=== PATIENT | female | born 1980 | race Caucasian/White ===

== ENCOUNTER → 2017-05-18 | Outpatient (CLI) | payer OTHER ==
[~2017-05-18] MED LIST: BUPRTAB51 PO; CIPR-255 PO; KETO10TA PO; NALT50TA5 PO; TAMS0.4C38 PO
[2017-05-22 09:25] LABS: CHLAMYDIA TRACH RNA*** NOT DETECTED (NOT DETECTED); GC (NEIS GONORRHOEAE)RNA** NOT DETECTED (NOT DETECTED)
== END | disposition home or self-care (01) ==
LOC: C.LABSPEC 15:21
PROVIDERS: ATTEND Obstetrics & Gynecology
DX: Z20.2 Contact with and (suspected) exposure to infections with a predominantly sexual mode of transmission (principal)

== ENCOUNTER → 2017-05-18 | Outpatient (CLI) | payer OTHER | END | disposition home or self-care (01) | LOC: C.LABSPEC 09:29 | PROVIDERS: ATTEND Obstetrics & Gynecology | DX: Z20.2 Contact with and (suspected) exposure to infections with a predominantly sexual mode of transmission (principal) ==

== ENCOUNTER 2019-06-15 13:59 | Inpatient (IN) ==
--- OUTSIDE RECORDS SUMMARY | 2019-06-15 14:03 | External Medical Summary | Continuity of Care Document ---
:1980 Author Name [employer] M.D. Address Unavailable Unavailable , Care Team Providers Name Role Phone Unavailable Unavailable Unavailable Woytowich, A Unavailable Unavailable Unavailable Unavailable Unavailable Problems Recurrent UTI (599.0) (N39.0) Nephrolithiasis (592.0) (N20.0) Allergies and Adverse Reactions Allergy history not documented Medications ALPRAZolam 1 MG Oral Tablet , M.D. Refills: 0 Clindagel 1 % External Gel , M.D. Refills: 0 Valtrex 1 GM Oral Tablet , M.D. Refills: 0 SUMAtriptan Succinate 100 MG Oral Tablet , M.D. Refills: 0 Strattera CAPS , M.D. Refills: 0 buPROPion HCl TABS , M.D. Refills: 0 Naltrexone HCl - 50 MG Oral Tablet , M.D. Refills: 0 Ondansetron 4 MG Oral Tablet Disintegrating , M.D. Refills: 0 Propranolol HCl - 20 MG/5ML Oral Solution , M.D. Refills: 0 valACYclovir HCl - 500 MG Oral Tablet , M.D. Refills: 0 Multivitamins TABS , M.D. Refills: 0 Procedures Procedures not documented Immunizations Immunizations not documented Family History Mother Family history of thyroid disease (V18.19) (Z83.49) Status: Active Family history of hypertension (V17.49) (Z82.49) Status: Act phyllis Father Family history of malignant neoplasm of brain (V16.8) (Z80.8 ) Status: Active Plan of Treatment Planned Observations Planned Goals not documented Results No Known Results Results not documented Encounters Appointment; Brian Pillai II, DO 13-Feb-2018 10:40 Encounter Diagnosis: Problem not documented
--- NOTE | 2019-06-15 15:54 | Ultrasound Report ---
US venous doppler LE RT HISTORY: 38 years-old Female calf swelling/firmness r/o DVT acute right calf firmness COMPARISON: None available TECHNIQUE: Multiple real time sonographic images of the right lower extremity deep venous structures were obtained assessing grayscale appearance, color and spectral flow FINDINGS: Normal flow, compressibility, phasicity and augmentation of the right lower extremity deep venous str uctures. IMPRESSION: No sonographic evidence of deep venous thrombosis. The above report was generated using voice recognition software. It may contain grammatical, syntax o r spelling errors. Electronically signed by: Adrian Concecpion M.D. 06/15/2019 3:52 PM
[2019-06-15 16:44] LABS: Basophils # (auto) 0.12 K/uL (0-0.2); Eosinophils # (auto) 0.07 K/uL (0-0.5); Eosinophils % (auto) 1.2 %; Hematocrit (blood only) 37.7 % (37-47); Hemoglobin 12.6 g/dL (12.0-16.0); Immature Granulocytes # (auto) 0.01 K/uL (0.00-0.02); Immature Granulocytes % (auto) 0.2 %; Lymphocytes # (auto) 0.93 K/uL (1.2-3.4); Lymphocytes % (auto) 15.7 %; Mean Corpuscular Hgb Conc 33.4 g/dL (32-36); Mean Corpuscular Volume 98.7 fL (80-100); Mean Platelet Volume 8.9 fL (7.4-10.4); Monocytes # (auto) 0.82 K/uL (0.11-0.59); Monocytes % (auto) 13.9 %; Neutrophils # (auto) 3.97 K/uL (1.4-6.5); Platelet Count 104 K/uL (130-400); RDW Coefficient of Variation 15.2 % (11.5-14.5); RDW Standard Deviation 54.8 fL (36.4-46.3); Red Blood Count 3.82 M/uL (4.2-5.4); White Blood Count 5.92 K/uL (4.8-10.8)
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
[2019-06-15 16:52] LABS: Prothrombin Time 9.8 Seconds (9.0-12.0)
[2019-06-15 16:59] LABS: Albumin Level 3.9 gm/dl (3.4-5.0); BUN Creatinine Ratio 13.7 (10-20); Bilirubin Direct 0.2 mg/dl (0-0.2); Calcium 9.2 mg/dl (8.5-10.1); Creatinine Clr Calc Pharmacy 86.2 ml/min; Est GFR (African American) 94.1; Est GFR (Non-African American) 81.2; Potassium 3.7 mmol/L (3.5-5.1)
[2019-06-15 17:02] LABS: Albumin Globulin Ratio 1.1 (0.9-2); Bilirubin,Total 0.5 mg/dl (0.2-1); Globulin 3.6 gm/dl (2.5-4.0); Total Protein 7.5 gm/dl (6.4-8.2)
--- NOTE | 2019-06-15 18:27 | Emergency Department Note ---
ED Visit Note Patient was seen by our PA/FOREST AND CONSERVATION WORKER. I was involved in the patient's care and did evaluate the patient myself. I was involved in the care throughout the ER stay. The patient on work-up was found to be quite intoxicated. She is apparently drinking hand cleaner signs composed primarily of ethyl alcohol. Alcohol level here was over 500. The patient was agreeable to hospitalization for alcohol detox and psychiatric evaluation. The patient was ordered for IV saline with multivitamins, thiamine and folate. The hospitalist on-call was consulted. Psychiatric case management has been involved. .
[2019-06-15] MEDS ORDERED: MULTI-VITAMIN INFUSION 10 ML, THIAMINE HCL 100 MG, FOLIC ACID 1 MG in SODIUM CHLORIDE 0... IV SCH ×2 (18:30→20:30)
[2019-06-15 18:36] LABS: Acetaminophen < 2 ug/ml (10-30)
[2019-06-15 18:37] LABS: Salicylate < 1.7 mg/dl (2.8-20)
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
[2019-06-15] MEDS ORDERED: GABAPENTIN 1200MG ALCOHOL WITHDRAWAL LOAD PO STA (19:24)
[2019-06-15] MEDS ORDERED: ONDANSETRON INJ 2 MG/ML 2 ML VIAL IV PRN (19:24)
[2019-06-15] MEDS ORDERED: LORazepam 1 MG/2 ML VIAL IV PRN ×2 (19:24→23:56)
[2019-06-15] MEDS ORDERED: GABAPENTIN 600 MG TAB PO ONE (19:30)
[2019-06-15] MEDS ORDERED: THIAMINE HCL 100 MG in SYRINGE 9 ML IV SCH (20:00)
[2019-06-15] MEDS: FAMOTIDINE 20 MG in SYRINGE 3 ML IV SCH (20:08)
[2019-06-15 20:35] LABS: Folate (Folic Acid) 6.76 ng/ml (>5.38)
[2019-06-15] MEDS: chlordiazePOXIDE HCl 25 MG CAP PO SCH (23:01)
[2019-06-15] MEDS: LACTATED RINGER'S 1,000 ML IV SCH (23:01)
[2019-06-15] MEDS: GABAPENTIN 600 MG TAB PO SCH (23:01)
[2019-06-15 23:48] LABS: Pregnancy Test, Urine Negative (Negative)
[2019-06-15 23:58] LABS: Appearance Urine Cloudy (Clear); Bacteria Urine Automated 2+ (Negative); Bilirubin Urine Negative (Negative); Blood Urine 2+ (Negative); Color Urine Yellow; Epithelial Cell Urine Auto >30 /lpf (0-5); Glucose Urine UA Negative (Negative); Ketones Urine Negative (Negative); Leukocyte Esterase Urine 2+ (Negative); Nitrite Urine Negative (Negative); Protein Urine 1+ (Negative); Specific Gravity Urine 1.019 (1.000-1.030); Urobilinogen Urine Negative (Negative); WBC Urine Automated >30 /hpf (0-5); pH Urine 5.5 (4.5-7.5)
[2019-06-16] MEDS: LORazepam 1 MG/2 ML VIAL IV PRN ×5 (00:06→10:26)
[2019-06-16 00:15] LABS: Amphetamines+Metham, Urine Neg (Neg); Barbiturates, Urine Neg (Neg); Benzodiazepine, Urine Neg (Neg); Cocaine, Urine Neg (Neg); MDMA (Ecstacy), Urine Neg (Neg); Methadone, Urine Neg (Neg); Opiate, Urine Neg (Neg); Phencyclidine, Urine Neg (Neg)
[2019-06-16] MEDS: GABAPENTIN 600 MG TAB PO SCH (06:36)
[2019-06-16] MEDS: chlordiazePOXIDE HCl 25 MG CAP PO SCH (06:36)
[2019-06-16 07:15] LABS: Albumin Level 3.1 gm/dl (3.4-5.0); BUN Creatinine Ratio 12.9 (10-20); Calcium 7.9 mg/dl (8.5-10.1); Creatinine Clr Calc Pharmacy 107.5 ml/min; Est GFR (African American) 122.8; Potassium 3.7 mmol/L (3.5-5.1)
[2019-06-16 07:16] LABS: Albumin Globulin Ratio 1.1 (0.9-2); Bilirubin,Total 0.8 mg/dl (0.2-1); Globulin 2.8 gm/dl (2.5-4.0); Total Protein 5.9 gm/dl (6.4-8.2)
[2019-06-16] MEDS: LACTATED RINGER'S 1,000 ML IV SCH ×2 (07:17→17:21)
[2019-06-16] MEDS: FAMOTIDINE 20 MG in SYRINGE 3 ML IV SCH (07:44)
[2019-06-16] MEDS: NITROFURANTOIN MONOHYDRATE 100 MG CAP PO SCH ×2 (07:44→20:45)
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
[2019-06-16] MEDS: LORazepam 2 MG/4 ML VIAL IV PRN ×5 (11:21→22:32)
[2019-06-16] MEDS ORDERED: ACETAMINOPHEN 325 MG TAB ONE (13:54)
[2019-06-16] MEDS ORDERED: GABAPENTIN 600 MG TAB PO SCH (14:10)
[2019-06-16] MEDS ORDERED: PHENOBARBITAL SODIUM IV PRN (15:10)
[2019-06-16] MEDS ORDERED: PHENobarbital sodium 130 MG/ML VIAL IM SCH ×2 (15:30→18:30)
[2019-06-16] MEDS ORDERED: ICU PROTOCOL FOR HYPERGLYCEMIA PRN (16:19)
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
[2019-06-16] MEDS ORDERED: PHENobarbital sodium 130 MG/ML VIAL IM ONE (16:55)
[2019-06-16 18:04] LABS: BUN Creatinine Ratio 9.6 (10-20); Calcium 8.4 mg/dl (8.5-10.1); Creatinine Clr Calc Pharmacy 86.2 ml/min; Est GFR (African American) 94.1; Est GFR (Non-African American) 81.2; Potassium 3.8 mmol/L (3.5-5.1)
[2019-06-16 18:30] LABS: Base Excess VBG 5.5 mEq/L; Oxygen Saturation VBG 80.9 %; pH VBG 7.48 (7.36-7.41)
[2019-06-16] MEDS: NORMOSOL-R 1,000 ML IV SCH (19:03)
[2019-06-16] MEDS: THIAMINE HCL 500 MG in SODIUM CHLORIDE 0.9% 50 ML IV SCH (20:43)
[2019-06-16] MEDS: PHENobarbital sodium 130 MG/ML VIAL IM SCH (20:44)
[2019-06-17] MEDS: PHENobarbital sodium 130 MG/ML VIAL IM SCH (00:07)
[2019-06-17 04:11] LABS: Hematocrit (blood only) 31.1 % (37-47); Hemoglobin 10.4 g/dL (12.0-16.0); Mean Corpuscular Hgb Conc 33.4 g/dL (32-36); Mean Corpuscular Volume 100.3 fL (80-100); RDW Coefficient of Variation 14.1 % (11.5-14.5); RDW Standard Deviation 51.8 fL (36.4-46.3); White Blood Count 8.06 K/uL (4.8-10.8)
[2019-06-17 04:37] LABS: Albumin Level 2.9 gm/dl (3.4-5.0); BUN Creatinine Ratio 12.2 (10-20); Bilirubin Direct 0.3 mg/dl (0-0.2); Calcium 8.3 mg/dl (8.5-10.1); Creatinine Clr Calc Pharmacy 126.5 ml/min; Est GFR (African American) 134.5; Potassium 3.3 mmol/L (3.5-5.1)
[2019-06-17 04:40] LABS: Albumin Globulin Ratio 0.9 (0.9-2); Bilirubin,Total 0.8 mg/dl (0.2-1); Globulin 3.2 gm/dl (2.5-4.0); Total Protein 6.1 gm/dl (6.4-8.2)
[2019-06-17 04:43] LABS: Basophils # (auto) 0.06 K/uL (0-0.2); Basophils % (auto) 0.7 %; Eosinophils # (auto) 0.11 K/uL (0-0.5); Eosinophils % (auto) 1.4 %; Immature Granulocytes # (auto) 0.02 K/uL (0.00-0.02); Immature Granulocytes % (auto) 0.2 %; Lymphocytes # (auto) 1.02 K/uL (1.2-3.4); Lymphocytes % (auto) 12.7 %; Mean Platelet Volume 10.1 fL (7.4-10.4); Monocytes # (auto) 0.81 K/uL (0.11-0.59); Neutrophils # (auto) 6.04 K/uL (1.4-6.5); Platelet Count 89 K/uL (130-400); Platelet Estimate Decreased (Normal); RBC Morphology Unremarkable
[2019-06-17] MEDS: THIAMINE HCL 500 MG in SODIUM CHLORIDE 0.9% 50 ML IV SCH ×3 (05:07→21:29)
[2019-06-17] MEDS ORDERED: POTASSIUM CHLORIDE 20 MEQ TABCR PO STA (06:56)
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
[2019-06-17] MEDS: PANTOprazole 40 MG TAB PO SCH (07:41)
[2019-06-17] MEDS: ENOXAPARIN INJ 40 MG/0.4 ML SYR SQ SCH (07:41)
[2019-06-17] MEDS: NITROFURANTOIN MONOHYDRATE 100 MG CAP PO SCH ×2 (07:41→22:41)
[2019-06-17] MEDS: NORMOSOL-R 1,000 ML IV SCH (07:42)
--- NOTE | 2019-06-17 08:46 | XRay Report ---
XR tibia fibula RT 2V CLINICAL HISTORY: 38 years-old Female presenting with left leg pain and bruising. TECHNIQUE: Frontal and lateral views of the right lower leg were obtained. COMPARISON: None. FINDINGS: Knee joint and ankle mortise congruent. No acute fracture or malalignment. No advanced degenerative c hange. Subcutaneous edema noted throughout the lower leg. IMPRESSION: 1. No acute osseous injury. 2. Nonspecific lower leg edema. Electronically signed by: Russ Moya M.D. 06/17/2019 8:45 AM
[2019-06-17 09:08] LABS: Reticulocyte % 1.6 % (0.5-2.0); Reticulocytes # 0.05 10^6/uL (0.02-0.10)
[2019-06-17 09:11] LABS: Ferritin 155.2 ng/ml (8-388)
[2019-06-17] MEDS ORDERED: PHENobarbital 32.4 MG TAB PO PRN (09:18)
[2019-06-17] MEDS: PHENobarbital 32.4 MG TAB PO SCH ×2 (09:28→21:30)
[2019-06-17 09:41] LABS: Hepatitis B Surface Antigen Neg (Neg)
[2019-06-17 10:09] LABS: Hepatitis C IgG 13Yrs+Old_Rflx Neg (Neg)
[2019-06-17] MEDS ORDERED: GABAPENTIN 600 MG TAB PO SCH (18:10)
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
[2019-06-17] MEDS ORDERED: LORazepam 0.5 MG/1 ML VIAL IV ONE (21:00)
[2019-06-18] MEDS: THIAMINE HCL 300 MG in SODIUM CHLORIDE 0.9% 50 ML IV SCH ×3 (03:33→21:07)
[2019-06-18 07:12] LABS: BUN Creatinine Ratio 8.7 (10-20); Creatinine Clr Calc Pharmacy 130.8 ml/min; Est GFR (African American) 135.9; Est GFR (Non-African American) 117.3; Potassium 3.3 mmol/L (3.5-5.1)
[2019-06-18 07:42] LABS: Hematocrit (blood only) 34.2 % (37-47); Hemoglobin 11.5 g/dL (12.0-16.0); Mean Corpuscular Hgb Conc 33.6 g/dL (32-36); Mean Corpuscular Volume 100.6 fL (80-100); Mean Platelet Volume 10.5 fL (7.4-10.4); Platelet Count 114 K/uL (130-400); RDW Coefficient of Variation 13.8 % (11.5-14.5); RDW Standard Deviation 50.7 fL (36.4-46.3); White Blood Count 8.53 K/uL (4.8-10.8)
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
[2019-06-18] MEDS: ENOXAPARIN INJ 40 MG/0.4 ML SYR SQ SCH (10:02)
[2019-06-18] MEDS: NITROFURANTOIN MONOHYDRATE 100 MG CAP PO SCH ×2 (10:03→21:08)
[2019-06-18] MEDS: PANTOprazole 40 MG TAB PO SCH (10:04)
[2019-06-18] MEDS: PHENobarbital 32.4 MG TAB PO SCH ×2 (10:04→21:08)
[2019-06-18 12:38] LABS: Chlamydia Trach RNA NOT DETECTED (NOT DETECTED); GC (Neis gonorrhoeae) RNA NOT DETECTED (NOT DETECTED)
[2019-06-18] MEDS: ACETAMINOPHEN 325 MG TAB PO PRN (13:17)
[2019-06-18 19:11] LABS: HIV 1 RNA PCR Copies/ML <20 Copies/mL; HIV-1 RNA Log Copies/mL <1.30 Log cps/mL
[2019-06-18] MEDS ORDERED: EMOLLIENT OINTMENT 1 GM EXT SCH (21:00)
[2019-06-18] MEDS: AQUAPHOR OINT 454 GM JAR EXT SCH (21:41)
[2019-06-18] MEDS ORDERED: FLUCONAZOLE 200 MG/5 ML UDP PO STA (22:31)
[2019-06-19] MEDS: THIAMINE HCL 300 MG in SODIUM CHLORIDE 0.9% 50 ML IV SCH ×2 (04:18→13:59)
[2019-06-19] MEDS ORDERED: GABAPENTIN 600 MG TAB PO SCH (06:10)
[2019-06-19] MEDS: PANTOprazole 40 MG TAB PO SCH (07:35)
[2019-06-19] MEDS: NITROFURANTOIN MONOHYDRATE 100 MG CAP PO SCH (07:35)
[2019-06-19] MEDS: PHENobarbital 32.4 MG TAB PO SCH (07:35)
[2019-06-19] MEDS: ENOXAPARIN INJ 40 MG/0.4 ML SYR SQ SCH (07:36)
[2019-06-19 07:39] LABS: BUN Creatinine Ratio 9.1 (10-20); Calcium 9.1 mg/dl (8.5-10.1); Creatinine Clr Calc Pharmacy 115.4 ml/min; Est GFR (African American) 130.4; Est GFR (Non-African American) 112.5; Potassium 3.7 mmol/L (3.5-5.1)
[2019-06-19 07:42] LABS: Albumin Globulin Ratio 0.8 (0.9-2); Bilirubin,Total 0.6 mg/dl (0.2-1); Globulin 3.6 gm/dl (2.5-4.0); Total Protein 6.6 gm/dl (6.4-8.2)
[2019-06-19] MEDS ORDERED: VALACYCLOVIR HCL 500 MG TABLET PO SCH (09:00)
[2019-06-19] MEDS: ACETAMINOPHEN 325 MG TAB PO PRN (09:31)
[2019-06-19] MEDS: AQUAPHOR OINT 454 GM JAR EXT SCH (10:14)
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
[2019-06-21] MEDS ORDERED: THIAMINE HCL 100 MG in SYRINGE 9 ML IV SCH (09:00)
== END 2019-06-19 14:45 | disposition home or self-care (01) | DRG 897 ==
LOC: ED 13:59 → 2S 18:11 → SUATTDRO 18:11 → 2S 18:46 → 1E 06-16 15:08 → 2E 06-17 11:02
DX: F10.239 Alcohol dependence with withdrawal, unspecified; F43.10 Post-traumatic stress disorder, unspecified; B96.20 Unspecified Escherichia coli [E. coli] as the cause of diseases classified elsewhere; F32.9 Major depressive disorder, single episode, unspecified; Z79.899 Other long term (current) drug therapy; W23.0XXA Caught, crushed, jammed, or pinched between moving objects, initial encounter; N39.0 Urinary tract infection, site not specified; S80.11XA Contusion of right lower leg, initial encounter; F90.9 Attention-deficit hyperactivity disorder, unspecified type

== ENCOUNTER 2019-12-26 22:49 | Observation (INO) ==
[2019-12-26] MEDS ORDERED: SODIUM CHLORIDE 0.9% 1000ML 1,000 ML IV SCH (23:15)
[2019-12-26 23:54] LABS: Basophils # (auto) 0.06 K/uL (0-0.2); Basophils % (auto) 0.8 %; Eosinophils # (auto) 0.15 K/uL (0-0.5); Eosinophils % (auto) 2.1 %; Hematocrit (blood only) 34.7 % (37-47); Hemoglobin 11.9 g/dL (12.0-16.0); Immature Granulocytes # (auto) 0.02 K/uL (0.00-0.02); Immature Granulocytes % (auto) 0.3 %; Lymphocytes # (auto) 2.25 K/uL (1.2-3.4); Lymphocytes % (auto) 31.1 %; Mean Corpuscular Hemoglobin 33.5 pg (25-34); Mean Corpuscular Hgb Conc 34.3 g/dL (32-36); Mean Corpuscular Volume 97.7 fL (80-100); Mean Platelet Volume 10.4 fL (7.4-10.4); Monocytes # (auto) 0.51 K/uL (0.11-0.59); Neutrophils # (auto) 4.25 K/uL (1.4-6.5); Neutrophils % (auto) 58.7 %; Platelet Count 116 K/uL (130-400); RDW Coefficient of Variation 13.9 % (11.5-14.5); Red Blood Count 3.55 M/uL (4.2-5.4); White Blood Count 7.24 K/uL (4.8-10.8)
[2019-12-27 00:13] LABS: Albumin Level 3.5 gm/dl (3.4-5.0); BUN Creatinine Ratio 12.7 (10-20); Creatinine Clr Calc Pharmacy 66.9 ml/min; Est GFR (African American) 72.7; Est GFR (Non-African American) 62.7; Magnesium 1.7 mg/dl (1.8-2.4); Potassium 4.1 mmol/L (3.5-5.1)
[2019-12-27 00:15] LABS: Pregnancy Test, Serum Negative (Negative)
[2019-12-27 00:24] LABS: Albumin Globulin Ratio 0.9 (0.9-2); Bilirubin,Total 0.2 mg/dl (0.2-1); Thyroid Stimulating Hormone 1.13 uIu/ml (0.300-4.500); Total Protein 7.5 gm/dl (6.4-8.2)
[2019-12-27] MEDS ORDERED: chlordiazePOXIDE HCl 25 MG CAP PO ONE (01:34)
[2019-12-27] MEDS ORDERED: LORazepam 1 MG/2 ML VIAL IV STA ×2 (01:34→04:07)
--- NOTE | 2019-12-27 01:38 | Emergency Department Note ---
History of Present Illness General Chief complaint: Detox Request Stated complaint: DETOX History of Present Illness This 39-year-old presents to the ER complaining of requesting detox for alcohol Location: Generalized Quality: Intoxicated Severity: Moderate Duration: Past few months Timing: Started few months ago Context: Patient is requesting help with rehab and came in Modifying factors: better with Ativan and Librium; worse with nothing Patient states has been to rehab before. Patient states she is been drinking heavily for quite some time now. She does get the shakes and not drinking. Abdirahman lambert denies drug use, chest pain, dyspnea, withdrawal seizures, abdominal pain or any other medical complaints. Home Medications Home Medications Medication Instructions Recorded Confirmed Type alprazolam 1 mg PO DAILY PRN 10/23/19 12/26/19 History chlordiazepoxide HCl 10 mg PO TID 12/26/19 12/26/19 History Allergies Allergy/AdvReac Type Severity Reaction Status Date / Time Sulfa (Sulfonamide Allergy Unknown UNKNOWN Unverified 12/26/19 23:20 Antibiotics) Past Med/Surg History Medical History Alcohol abuse (Acute) Alcohol withdrawal (Acute 10/07/13) Alcoholic hepatitis (Acute) History of pancreatitis (Acute) Nausea, vomiting, and diarrhea (Acute) No pertinent family history Surgical History No pertinent past surgical history Family History Other No pertinent family history Social History Preferred Language: Nam[place]ian Communication Ability: Effective Research Laboratory Specialist Required: Yes Beliefs That Will Affect Care: None Current Living Situation: Alone current occupational status: unemployed Feels Safe at Home: Yes Smoking Status: Never smoker Hx Alcohol Use: Yes Alcohol type: hard liquor Hx Substance Use: No Review of Systems A total of 10 systems reviewed and were otherwise negative Physical Exam Vital Signs Vital Signs - 24 hr 12/26/19 22:55 12/26/19 23:36 12/26/19 23:49 Temperature 36.6 C Temperature Source Oral Pulse Rate 82 Pulse Rate [Right Finger] 73 Pulse Rhythm [Right Finger] Respiratory Rate 18 16 Respiratory Effort / Characteristics Non-Labored Spontaneous Respiratory Depth Normal Normal Respiratory Pattern Regular Blood Pressure 105/63 Blood Pressure [Left Arm] 104/63 Blood Pressure Mean 77 Blood Pressure Mean [Left Arm] 76 Pulse Oximetry 100 100 100 Oxygen Delivery Method Room Air Room Air Room Air Sepsis Recent Fever Within 48 Hours No Sepsis New/Unexplained Change in Mental Status No Sepsis Action Taken by Nursing No Action Required 12/27/19 01:11 12/27/19 02:00 Temperature Temperature Source Pulse Rate Pulse Rate [Right Finger] 60 66 Pulse Rhythm [Right Finger] Regular Respiratory Rate 14 14 Respiratory Effort / Characteristics Non-Labored Spontaneous Non-Labored Spontaneous Respiratory Depth Normal Normal Respiratory Pattern Regular Regular Blood Pressure Blood Pressure [Left Arm] 100/56 L 109/59 L Blood Pressure Mean Blood Pressure Mean [Left Arm] 70 75 Pulse Oximetry 100 100 Oxygen Delivery Method Room Air Room Air Sepsis Recent Fever Within 48 Hours Sepsis New/Unexplained Change in Mental Status Sepsis Action Taken by Nursing VITALS: Vitals are noted on the nurse's note and reviewed by myself. Vital signs stable. GENERAL: Pleasant female with a EtOH odor, in no acute distress, nondiaphoretic, well-developed well-nourished. SKIN: The skin was without rashes, erythema, edema, or bruising. There is no tenting of the skin. Capillary reflex less than 2 seconds. HEAD: Normocephalic atraumatic. EARS: External auditory canals clear, tympanic membranes pearly mayorga without erythema or effusion bilaterally. EYES: Pupils equal round and reactive to light and accommodation. Conjunctivae with injection, sclerae without icterus. Extraocular movements intact. NOSE: Patent, turbinates without inflammation or discharge. MOUTH: Mucous membranes moist. Pharynx without erythema or exudate. Uvula midline. Airway patent. Tongue does not deviate. NECK: Supple without nuchal rigidity. No lymphadenopathy. No thyromegaly. Cervical spine is nontender. No JVD. HEART: Regular rate and rhythm LUNGS: Clear to auscultation bilaterally without wheezes, rales or rhonchi. No retractions or accessory muscle use. ABDOMEN: Positive bowel sounds x 4. Normal tympanic percussion. Soft, nontender, without masses or organomegaly. Carranza sign negative. No guarding or rebound tenderness. No CVA tenderness MUSCULOSKELETAL: No muscle atrophy, erythema, or edema noted. NEURO: Patient was alert and oriented to person place and time. Normal sensation to light and sharp touch. No focal neurological deficits. Course Administered Medications Discontinued Medications Chlordiazepoxide HCl (Librium) 50 mg PO NOW ONE Stop: 12/27/19 01:35 Last Admin: 12/27/19 01:40 Dose: 50 mg Documented by: [id number] Sodium Chloride (Nss 1000ml) 1,000 mls @ 999 mls/hr IV .Q1H1M APRIL Stop: 12/27/19 00:15 Last Infusion: 12/27/19 01:10 Dose: 0 mls/hr Documented by: [id number] Admin: 12/26/19 23:51 Dose: 999 mls/hr Documented by: [id number] Lorazepam (Ativan) 1 mg in 2 mls @ 2 mls/min IV NOW STA Stop: 12/27/19 01:35 Last Admin: 12/27/19 01:40 Dose: 2 mls/min Documented by: [id number] Medical Decision Making Medical Records Attestation: I reviewed the patient's medical records. Home Medications Current Medication List: was personally reviewed by me Laboratory Data Attestation: I reviewed the patient's lab results. Result diagrams: 12/26/19 23:26 12/26/19 23:26 Lab Results 12/26/19 12/26/19 12/26/19 Range/Units 23:26 23:26 23:26 WBC 7.24 (4.8-10.8) K/uL RBC 3.55 L (4.2-5.4) M/uL Hgb 11.9 L (12.0-16.0) g/dL Hct 34.7 L (37-47) % MCV 97.7 (80-100) fL MCH 33.5 (25-34) pg MCHC 34.3 (32-36) g/dL RDW Std Deviation 50.0 H (36.4-46.3) fL RDW Coeff of [place] 13.9 (11.5-14.5) % Plt Count 116 L (130-400) K/uL MPV 10.4 (7.4-10.4) fL Immature Gran % (Auto) 0.3 % Neut % (Auto) 58.7 % Lymph % (Auto) 31.1 % Hayes % (Auto) 7.0 % Eos % (Auto) 2.1 % Baso % (Auto) 0.8 % Immature Gran # (Auto) 0.02 (0.00-0.02) K/uL Neut # (Auto) 4.25 (1.4-6.5) K/uL Lymph # (Auto) 2.25 (1.2-3.4) K/uL Hayes # (Auto) 0.51 (0.11-0.59) K/uL Eos # (Auto) 0.15 (0-0.5) K/uL Baso # (Auto) 0.06 (0-0.2) K/uL Sodium 143 (136-145) mmol/L Potassium 4.1 (3.5-5.1) mmol/L Chloride 109 H (98-107) mmol/L Carbon Dioxide 29 (21-32) mmol/L Anion Gap 5.0 (3-11) BUN 14 (7-18) mg/dl Creatinine 1.12 (0.6-1.2) mg/dl Est Cr Clr Drug Dosing 66.9 ml/min Est GFR ( Amer) 72.7 Est GFR (Non-Af Amer) 62.7 BUN/Creatinine Ratio 12.7 (10-20) Glucose 80 (70-99) mg/dl Calcium 9.0 (8.5-10.1) mg/dl Magnesium 1.7 L (1.8-2.4) mg/dl Total Bilirubin 0.2 (0.2-1) mg/dl AST 114 H (15-37) U/L ALT 59 (12-78) U/L Alkaline Phosphatase 71 (45-117) U/L Total Protein 7.5 (6.4-8.2) gm/dl Albumin 3.5 (3.4-5.0) gm/dl Globulin 4.0 (2.5-4.0) gm/dl Albumin/Globulin Ratio 0.9 (0.9-2) TSH 1.130 (0.300-4.500) uIu/ml HCG, Qual Negative (Negative) Ethyl Alcohol mg/dL (0-3) mg/dl 12/26/19 Range/Units 23:43 WBC (4.8-10.8) K/uL RBC (4.2-5.4) M/uL Hgb (12.0-16.0) g/dL Hct (37-47) % MCV (80-100) fL MCH (25-34) pg MCHC (32-36) g/dL RDW Std Deviation (36.4-46.3) fL RDW Coeff of [place] (11.5-14.5) % Plt Count (130-400) K/uL MPV (7.4-10.4) fL Immature Gran % (Auto) % Neut % (Auto) % Lymph % (Auto) % Hayes % (Auto) % Eos % (Auto) % Baso % (Auto) % Immature Gran # (Auto) (0.00-0.02) K/uL Neut # (Auto) (1.4-6.5) K/uL Lymph # (Auto) (1.2-3.4) K/uL Hayes # (Auto) (0.11-0.59) K/uL Eos # (Auto) (0-0.5) K/uL Baso # (Auto) (0-0.2) K/uL Sodium (136-145) mmol/L Potassium (3.5-5.1) mmol/L Chloride (98-107) mmol/L Carbon Dioxide (21-32) mmol/L Anion Gap (3-11) BUN (7-18) mg/dl Creatinine (0.6-1.2) mg/dl Est Cr Clr Drug Dosing ml/min Est GFR ( Amer) Est GFR (Non-Af Amer) BUN/Creatinine Ratio (10-20) Glucose (70-99) mg/dl Calcium (8.5-10.1) mg/dl Magnesium (1.8-2.4) mg/dl Total Bilirubin (0.2-1) mg/dl AST (15-37) U/L ALT (12-78) U/L Alkaline Phosphatase (45-117) U/L Total Protein (6.4-8.2) gm/dl Albumin (3.4-5.0) gm/dl Globulin (2.5-4.0) gm/dl Albumin/Globulin Ratio (0.9-2) TSH (0.300-4.500) uIu/ml HCG, Qual (Negative) Ethyl Alcohol mg/dL 294.0 H (0-3) mg/dl Imaging Data Attestation: I personally reviewed and interpreted this imaging study as follows: MDM Narrative Prior records/ancillary studies reviewed and summarized above. Nursing notes reviewed. Additional history obtained from boyfriend. The patient's history was concerning for alcoholism requesting rehab Differential diagnosis: Etiologies such as alcoholism, metabolic, infection, hypo/hyperglycemia, elect rolyte abnormalities, cardiac sources, intracerebral event, toxicologic, neurologic, as well as others were entertained. Physical examination: As above. ER treatment provided: IV Lock IV fluids, Librium, Ativan On reassessment the patient felt better. Diagnostics interpretation by me: The labs revealed mild anemia, elevated alcohol Consultation: A consultation was placed with the behavioral health counselor, Mainor. The case was discussed and diagnostics were reviewed. He states the patient is refusing to go to rehab and only will stay here for detox. She is requesting medical admission. Medicine was consulted and Dr. Crawford will evaluate the patient for possible admission. The patient was evaluated in the ER for further treatment. Exam and history seem consistent with alcohol abuse with withdrawal symptoms. Patient is requesting to be admitted here for detox. She is refusing to go to rehab facility. Medicine was consulted. They will evaluate the patient. Patient started Librium and Ativan. No history of withdrawal seizures. By the evaluation outlined above emergent etiologies such as infection, electrolyte abnormalities, cardiac sources, intracerebral event, neurologic, abnormalities blood glucose, as well as others were deemed relatively unlikely. The pt informed about the findings as listed above. All questions were answered and pleased with the treatment. The chart was completed utilizing [employer] Speech voice recognition software. Grammatical errors, random word insertions, pronoun errors, and incomplete sentences are an occassional consequence of this system due to software limitations, ambient noise, and hardware issues. Any formal questions or concerns about the content, text, or information contained within the body of this dictation should be directly addressed to the physician housekeeper and laundry assistant for clarification. Impression & Plan Alcohol withdrawal, Alcohol abuse Discharge Plan Visit Data Chief Complaint: Detox Request Stated Complaint: DETOX ED Provider: Melisa Rosenberg ED Midlevel Provider: Reyna Sorensen Discharge Problem: Alcohol withdrawal, Alcohol abuse Patient Disposition: Being Evaluated by Hospitalist Condition: Fair Forms Stand Alone Forms: My [facility], Suicide Prevention Resources Prescriptions Prescriptions: No Action chlordiazepoxide HCl 10 mg capsule 10 mg PO TID RF: 0 alprazolam 1 mg tablet 1 mg PO DAILY PRN (Reason: Anxiety) RF: 0 Referrals Referrals: Julian Tobar MD [Primary Care Provider] -
[2019-12-27 04:03] LABS: Appearance Urine Cloudy (Clear); Bacteria Urine Automated 1+ (Negative); Bilirubin Urine Negative (Negative); Blood Urine Negative (Negative); Color Urine Yellow; Epithelial Cell Urine Auto 0-5 /lpf (0-5); Glucose Urine UA Negative (Negative); Ketones Urine Negative (Negative); Leukocyte Esterase Urine 2+ (Negative); Nitrite Urine Positive (Negative); Protein Urine Negative (Negative); RBC Urine Automated 0-4 /hpf (0-4); Specific Gravity Urine 1.014 (1.000-1.030); Urobilinogen Urine Negative (Negative); WBC Urine Automated >30 /hpf (0-5)
[2019-12-27 04:21] LABS: Amphetamines+Metham, Urine Neg (Neg); Barbiturates, Urine Neg (Neg); Benzodiazepine, Urine Pos (Neg); Cocaine, Urine Neg (Neg); MDMA (Ecstacy), Urine Neg (Neg); Methadone, Urine Neg (Neg); Opiate, Urine Neg (Neg); Phencyclidine, Urine Neg (Neg)
[2019-12-27] MEDS ORDERED: GABAPENTIN 600 MG TAB PO SCH (04:30)
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
[2019-12-27] MEDS ORDERED: LORazepam 3 MG/6 ML VIAL IV PRN (05:22)
[2019-12-27] MEDS ORDERED: ONDANSETRON INJ 2 MG/ML 2 ML VIAL IV PRN (05:22)
[2019-12-27] MEDS ORDERED: ATIVAN IV ALCOHOL WITHDRAWL IV PRN (05:22)
[2019-12-27] MEDS ORDERED: LORazepam 2 MG/4 ML VIAL IV PRN (05:22)
[2019-12-27] MEDS ORDERED: GABAPENTIN 1200MG ALCOHOL WITHDRAWAL LOAD PO STA (05:22)
[2019-12-27] MEDS ORDERED: GABAPENTIN 600 MG TAB PO ONE (05:30)
[2019-12-27] MEDS ORDERED: MULTI-VITAMIN INFUSION 10 ML, THIAMINE HCL 100 MG, FOLIC ACID 1 MG in SODIUM CHLORIDE 0... IV ONE (05:45)
--- NOTE | 2019-12-27 07:01 | Billing Data ---
Date of Service December 27, 2019 Coding Level of Care Code 14887 Initial Inpt Care Lvl 3
[2019-12-27] MEDS: LORazepam 1 MG/2 ML VIAL IV PRN ×2 (08:06→16:18)
[2019-12-27] MEDS: ENOXAPARIN INJ 40 MG/0.4 ML SYR SQ SCH (08:10)
[2019-12-27] MEDS: GABAPENTIN 600 MG TAB PO SCH ×2 (12:34→18:21)
--- NOTE | 2019-12-27 16:40 | Electrocardiogram Report ---
Test Reason : Blood Pressure : / mmHG Vent. Rate : 066 BPM Atrial Rate : 066 BPM P-R Int : 134 ms QRS Dur : 090 ms QT Int : 416 ms P-R-T Axes : 022 046 029 degrees QTc Int : 436 ms Normal sinus rhythm Normal ECG When compared with ECG of 23-OCT-2019 15:07, Vent. rate has decreased BY 44 BPM Nonspecific T wave abnormality has replaced inverted T waves in Inferior leads Confirmed by Karan Young ([id number]) on 12/27/2019 4:40:00 PM Referred By: REFERRED SELF Confirmed By:Karan Young
--- NOTE | 2019-12-27 17:38 | Hospitalist Progress Note ---
Date of Service December 27, 2019 Assessment & Plan (1) Alcohol withdrawal: Ines Bailey is a 39-year-old female with a past medical history of alcohol abuse and withdrawal symptoms who presents for alcohol detoxification. She does not have a history of seizure or hallucinations. Acute alcohol withdrawal - Sweaty, diaphoretic, anxious, frequently itching her arms and appears ill but nontoxic - Last drink 6 PM 12/26/2019 - EtOH 294 at 0000; repeat in AM - Gabapentin protocol; AWSS, scored IV lorazepam as needed - Folic acid daily, thiamine daily Anxiety/depression: - Patient takes her Wellbutrin and citalopram intermittently, these medications have not been filled recently per med rec HSV - new complaint of vaginal bumps, that she is concerned about - deferred pelvic exam at this time out of concern about alcohol withdraws - Continue valacyclovir 500 mg daily Diet: Regular DVT prophylaxis: Lovenox, SCDs Code: Full Admission and Anticipated Discharge Date Admission Date: December 27, 2019 Supervising Physician Co-Signing Physician Notes Resident Physician Supervision Note: I independently interviewed and examined the patient and verified the ordonez history and physical, reviewed labs and image studies, discussed the case with the resident Dr. Vann and agree with the findings and care plan. Subjective Patient felt well throughout the day, required two doses of 1mg Ativan throughout the day. Did not feel much by the way of continued tremors, fevers, or chills. Does have complaint of some new vaginal bumps, that she is uncertain how long they were they for, and some unknown discharge. Review of Systems Review of Systems: All systems reviewed & are unremarkable except as noted in Subjective Physical Exam Constitutional: WD/WN, vitals as above ENMT: external ear and nose normal, oropharynx normal Respiratory: normal respiratory effort, lungs clear to auscultation Cardiovascular: RRR, no murmur, no edema Gastrointestinal (Abdomen): Inspection/Auscultation: abdomen normal to inspection and normal bowel sounds; abdomen not distended Percussion/Palpation: abdomen soft; abdomen nontender, no guarding, abdomen not rigid and no hepatosplenomegaly Neurologic: PERRL, EOMI, accommodation nl, no face palsy, no dysarthria normal touch/pain/proprioception, CN's II-XI intact bilaterally and moves all extremities Psychiatric: A+Ox3, euthymic affect Genitourinary: no CVA tenderness Results & Data ([facility]) Vital Signs (Past 12 Hours) Vital Signs Temp Pulse Pulse Pulse Resp BP Pulse Ox 12/27/19 16:00 85 12/27/19 15:58 37.3 C 97 H 20 117/67 100 12/27/19 11:21 37.3 C 89 16 110/61 97 12/27/19 06:48 37.1 C 79 17 99/59 L 92 Laboratory Results 12/27/19 12/27/19 12/27/19 Range/Units 03:45 03:45 03:45 WBC (4.8-10.8) K/uL RBC (4.2-5.4) M/uL Hgb (12.0-16.0) g/dL Hct (37-47) % MCV (80-100) fL MCH (25-34) pg MCHC (32-36) g/dL RDW Std Deviation (36.4-46.3) fL RDW Coeff of [place] (11.5-14.5) % Plt Count (130-400) K/uL MPV (7.4-10.4) fL Immature Gran % (Auto) % Neut % (Auto) % Lymph % (Auto) % [place] % (Auto) % Eos % (Auto) % Baso % (Auto) % Immature Gran # (Auto) (0.00-0.02) K/uL Neut # (Auto) (1.4-6.5) K/uL Lymph # (Auto) (1.2-3.4) K/uL [place] # (Auto) (0.11-0.59) K/uL Eos # (Auto) (0-0.5) K/uL Baso # (Auto) (0-0.2) K/uL Sodium (136-145) mmol/L Potassium (3.5-5.1) mmol/L Chloride (98-107) mmol/L Carbon Dioxide (21-32) mmol/L Anion Gap (3-11) BUN (7-18) mg/dl Creatinine (0.6-1.2) mg/dl Est Cr Clr Drug Dosing ml/min Est GFR ( Amer) Est GFR (Non-Af Amer) BUN/Creatinine Ratio (10-20) Glucose (70-99) mg/dl Calcium (8.5-10.1) mg/dl Magnesium (1.8-2.4) mg/dl Total Bilirubin (0.2-1) mg/dl AST (15-37) U/L ALT (12-78) U/L Alkaline Phosphatase (45-117) U/L Total Protein (6.4-8.2) gm/dl Albumin (3.4-5.0) gm/dl Globulin (2.5-4.0) gm/dl Albumin/Globulin Ratio (0.9-2) TSH (0.300-4.500) uIu/ml HCG, Qual (Negative) Urine Color Yellow Urine Appearance Cloudy A (Clear) Urine pH 6.0 (4.5-7.5) Ur Specific [place] 1.014 (1.000-1.030) Urine Protein Negative (Negative) Urine Glucose (UA) Negative (Negative) Urine Ketones Negative (Negative) Urine Blood Negative (Negative) Urine Nitrite Positive A (Negative) Urine Bilirubin Negative (Negative) Urine Urobilinogen Negative (Negative) Ur Leukocyte Esterase 2+ H (Negative) Urine WBC (Auto) >30 H (0-5) /hpf Urine RBC (Auto) 0-4 (0-4) /hpf U Hyaline Cast (Auto) 5-10 H (0-5) /lpf U Epithel Cells (Auto) 0-5 (0-5) /lpf Urine Bacteria (Auto) 1+ H (Negative) Urine Opiates Screen Neg (Neg) Ur Methadone, Qual Neg (Neg) Urine Barbiturates Neg (Neg) Ur Phencyclidine (PCP) Neg (Neg) U Amphetamin/Meth Scrn Neg (Neg) MDMA (Ecstasy) Screen Neg (Neg) U OH-Alprazolam Confrm Pending U Benzodiazepines Scrn Pos H (Neg) 7-Amino Clonazepam Pending Ur Nordiazepam Confirm Pending U OH-ethylflurazepam Pending U Lorazepam Cnf GC/MS Pending U Oxazepam Confm GC/MS Pending Ur Temazepam Confirm Pending U OH-Triazolam Confirm Pending U OH-Midazolam Confirm Pending Ur Cocaine Metabolite Neg (Neg) U Marijuana (THC) Screen Neg (Neg) Drug Screen Comment Pending Ethyl Alcohol mg/dL (0-3) mg/dl 02/12/26/19 12/26/19 Range/Units 23:43 23:26 23:26 WBC (4.8-10.8) K/uL RBC (4.2-5.4) M/uL Hgb (12.0-16.0) g/dL Hct (37-47) % MCV (80-100) fL MCH (25-34) pg MCHC (32-36) g/dL RDW Std Deviation (36.4-46.3) fL RDW Coeff of [place] (11.5-14.5) % Plt Count (130-400) K/uL MPV (7.4-10.4) fL Immature Gran % (Auto) % Neut % (Auto) % Lymph % (Auto) % [place] % (Auto) % Eos % (Auto) % Baso % (Auto) % Immature Gran # (Auto) (0.00-0.02) K/uL Neut # (Auto) (1.4-6.5) K/uL Lymph # (Auto) (1.2-3.4) K/uL [place] # (Auto) (0.11-0.59) K/uL Eos # (Auto) (0-0.5) K/uL Baso # (Auto) (0-0.2) K/uL Sodium 143 (136-145) mmol/L Potassium 4.1 (3.5-5.1) mmol/L Chloride 109 H (98-107) mmol/L Carbon Dioxide 29 (21-32) mmol/L Anion Gap 5.0 (3-11) BUN 14 (7-18) mg/dl Creatinine 1.12 (0.6-1.2) mg/dl Est Cr Clr Drug Dosing 66.9 ml/min Est GFR ( Amer) 72.7 Est GFR (Non-Af Amer) 62.7 BUN/Creatinine Ratio 12.7 (10-20) Glucose 80 (70-99) mg/dl Calcium 9.0 (8.5-10.1) mg/dl Magnesium 1.7 L (1.8-2.4) mg/dl Total Bilirubin 0.2 (0.2-1) mg/dl AST 114 H (15-37) U/L ALT 59 (12-78) U/L Alkaline Phosphatase 71 (45-117) U/L Total Protein 7.5 (6.4-8.2) gm/dl Albumin 3.5 (3.4-5.0) gm/dl Globulin 4.0 (2.5-4.0) gm/dl Albumin/Globulin Ratio 0.9 (0.9-2) TSH 1.130 (0.300-4.500) uIu/ml HCG, Qual Negative (Negative) Urine Color Urine Appearance (Clear) Urine pH (4.5-7.5) Ur Specific [place] (1.000-1.030) Urine Protein (Negative) Urine Glucose (UA) (Negative) Urine Ketones (Negative) Urine Blood (Negative) Urine Nitrite (Negative) Urine Bilirubin (Negative) Urine Urobilinogen (Negative) Ur Leukocyte Esterase (Negative) Urine WBC (Auto) (0-5) /hpf Urine RBC (Auto) (0-4) /hpf U Hyaline Cast (Auto) (0-5) /lpf U Epithel Cells (Auto) (0-5) /lpf Urine Bacteria (Auto) (Negative) Urine Opiates Screen (Neg) Ur Methadone, Qual (Neg) Urine Barbiturates (Neg) Ur Phencyclidine (PCP) (Neg) U Amphetamin/Meth Scrn (Neg) MDMA (Ecstasy) Screen (Neg) U OH-Alprazolam Confrm U Benzodiazepines Scrn (Neg) 7-Amino Clonazepam Ur Nordiazepam Confirm U OH-ethylflurazepam U Lorazepam Cnf GC/MS U Oxazepam Confm GC/MS Ur Temazepam Confirm U OH-Triazolam Confirm U OH-Midazolam Confirm Ur Cocaine Metabolite (Neg) U Marijuana (THC) Screen (Neg) Drug Screen Comment Ethyl Alcohol mg/dL 294.0 H (0-3) mg/dl 12/26/19 Range/Units 23:26 WBC 7.24 (4.8-10.8) K/uL RBC 3.55 L (4.2-5.4) M/uL Hgb 11.9 L (12.0-16.0) g/dL Hct 34.7 L (37-47) % MCV 97.7 (80-100) fL MCH 33.5 (25-34) pg MCHC 34.3 (32-36) g/dL RDW Std Deviation 50.0 H (36.4-46.3) fL RDW Coeff of [place] 13.9 (11.5-14.5) % Plt Count 116 L (130-400) K/uL MPV 10.4 (7.4-10.4) fL Immature Gran % (Auto) 0.3 % Neut % (Auto) 58.7 % Lymph % (Auto) 31.1 % [place] % (Auto) 7.0 % Eos % (Auto) 2.1 % Baso % (Auto) 0.8 % Immature Gran # (Auto) 0.02 (0.00-0.02) K/uL Neut # (Auto) 4.25 (1.4-6.5) K/uL Lymph # (Auto) 2.25 (1.2-3.4) K/uL [place] # (Auto) 0.51 (0.11-0.59) K/uL Eos # (Auto) 0.15 (0-0.5) K/uL Baso # (Auto) 0.06 (0-0.2) K/uL Sodium (136-145) mmol/L Potassium (3.5-5.1) mmol/L Chloride (98-107) mmol/L Carbon Dioxide (21-32) mmol/L Anion Gap (3-11) BUN (7-18) mg/dl Creatinine (0.6-1.2) mg/dl Est Cr Clr Drug Dosing ml/min Est GFR ( Amer) Est GFR (Non-Af Amer) BUN/Creatinine Ratio (10-20) Glucose (70-99) mg/dl Calcium (8.5-10.1) mg/dl Magnesium (1.8-2.4) mg/dl Total Bilirubin (0.2-1) mg/dl AST (15-37) U/L ALT (12-78) U/L Alkaline Phosphatase (45-117) U/L Total Protein (6.4-8.2) gm/dl Albumin (3.4-5.0) gm/dl Globulin (2.5-4.0) gm/dl Albumin/Globulin Ratio (0.9-2) TSH (0.300-4.500) uIu/ml HCG, Qual (Negative) Urine Color Urine Appearance (Clear) Urine pH (4.5-7.5) Ur Specific [place] (1.000-1.030) Urine Protein (Negative) Urine Glucose (UA) (Negative) Urine Ketones (Negative) Urine Blood (Negative) Urine Nitrite (Negative) Urine Bilirubin (Negative) Urine Urobilinogen (Negative) Ur Leukocyte Esterase (Negative) Urine WBC (Auto) (0-5) /hpf Urine RBC (Auto) (0-4) /hpf U Hyaline Cast (Auto) (0-5) /lpf U Epithel Cells (Auto) (0-5) /lpf Urine Bacteria (Auto) (Negative) Urine Opiates Screen (Neg) Ur Methadone, Qual (Neg) Urine Barbiturates (Neg) Ur Phencyclidine (PCP) (Neg) U Amphetamin/Meth Scrn (Neg) MDMA (Ecstasy) Screen (Neg) U OH-Alprazolam Confrm U Benzodiazepines Scrn (Neg) 7-Amino Clonazepam Ur Nordiazepam Confirm U OH-ethylflurazepam U Lorazepam Cnf GC/MS U Oxazepam Confm GC/MS Ur Temazepam Confirm U OH-Triazolam Confirm U OH-Midazolam Confirm Ur Cocaine Metabolite (Neg) U Marijuana (THC) Screen (Neg) Drug Screen Comment Ethyl Alcohol mg/dL (0-3) mg/dl Medications Administered Current Inpatient Medications Enoxaparin Sodium (Lovenox) 40 mg SQ Q24H APRIL Stop: 01/26/20 08:59 Last Admin: 12/27/19 08:10 Dose: 40 mg Documented by: Gabapentin (Neurontin) 600 mg PO Q6H APRIL Stop: 12/27/19 18:01 Last Admin: 12/27/19 12:34 Dose: 600 mg Documented by: Gabapentin (Neurontin) 600 mg PO Q8H APRIL Stop: 12/28/19 18:01 Gabapentin (Neurontin) 600 mg PO Q12H APRIL Stop: 12/29/19 18:01 Gabapentin (Neurontin) 600 mg PO Q24H APRIL Stop: 12/30/19 18:01 Lorazepam (Ativan) 1 mg in 2 mls @ 2 mls/min IV UD PRN; Protocol PRN Reason: EtOH Withdrawl AWSS Score 6,7 Stop: 01/26/20 05:21 Last Admin: 12/27/19 16:18 Dose: 2 mls/min Documented by: Lorazepam (Ativan) 2 mg in 4 mls @ 4 mls/min IV UD PRN; Protocol PRN Reason: EtOH Withdrawl AWSS Score 8,9 Stop: 01/26/20 05:21 Lorazepam (Ativan) 3 mg in 6 mls @ 4 mls/min IV ONCE PRN; Protocol PRN Reason: EtOH Withdrawl AWSS Score >=10 Stop: 01/26/20 05:21 Folic Acid 1 mg/ Syringe 10 mls @ 5 mls/min IV QAM [facility] Stop: 01/27/20 08:59 Nitrofurantoin Macrocrystals (Macrobid) 100 mg PO BID [facility]; Protocol Stop: 01/01/20 20:59 Ondansetron HCl (Zofran) 4 mg IV Q6H PRN PRN Reason: Nausea Stop: 01/26/20 05:21 Thiamine HCl (Vitamin B-1) [facility] [place]: 01/27/20 08:59 Resident Activity Tracking Resident Involvement: Resident Care Provided Care Provided: Adult Hospital Medicine
[2019-12-27] MEDS ORDERED: chlordiazePOXIDE HCl 25 MG CAP PO PRN (18:46)
[2019-12-27] MEDS: NITROFURANTOIN MONOHYDRATE 100 MG CAP PO SCH (21:04)
[2019-12-28] MEDS: GABAPENTIN 600 MG TAB PO SCH ×2 (02:00→09:46)
[2019-12-28 07:59] LABS: Basophils # (auto) 0.03 K/uL (0-0.2); Basophils % (auto) 0.5 %; Eosinophils # (auto) 0.21 K/uL (0-0.5); Eosinophils % (auto) 3.6 %; Hematocrit (blood only) 33.3 % (37-47); Hemoglobin 11.2 g/dL (12.0-16.0); Immature Granulocytes # (auto) 0.02 K/uL (0.00-0.02); Immature Granulocytes % (auto) 0.3 %; Lymphocytes % (auto) 32.5 %; Mean Corpuscular Hemoglobin 33.6 pg (25-34); Mean Corpuscular Hgb Conc 33.6 g/dL (32-36); Mean Platelet Volume 10.1 fL (7.4-10.4); Monocytes # (auto) 0.75 K/uL (0.11-0.59); Monocytes % (auto) 12.8 %; Neutrophils # (auto) 2.94 K/uL (1.4-6.5); Neutrophils % (auto) 50.3 %; Platelet Count 108 K/uL (130-400); RDW Standard Deviation 50.7 fL (36.4-46.3); Red Blood Count 3.33 M/uL (4.2-5.4); White Blood Count 5.85 K/uL (4.8-10.8)
[2019-12-28 08:34] LABS: BUN Creatinine Ratio 10.8 (10-20); Creatinine Clr Calc Pharmacy 84.9 ml/min; Est GFR (Non-African American) 82.8; Magnesium 1.6 mg/dl (1.8-2.4); Potassium 3.7 mmol/L (3.5-5.1)
[2019-12-28 08:35] LABS: Phosphorus 3.3 mg/dl (2.5-4.9)
[2019-12-28] MEDS ORDERED: THIAMINE HCL 100 MG TAB PO SCH (09:00)
[2019-12-28] MEDS ORDERED: VALACYCLOVIR HCL 500 MG TABLET PO SCH (09:00)
[2019-12-28] MEDS ORDERED: FOLIC ACID 1 MG in SYRINGE 9.8 ML IV SCH (09:00)
[2019-12-28] MEDS: ENOXAPARIN INJ 40 MG/0.4 ML SYR SQ SCH (09:46)
[2019-12-28] MEDS: NITROFURANTOIN MONOHYDRATE 100 MG CAP PO SCH (09:47)
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
[2019-12-29] MEDS ORDERED: GABAPENTIN 600 MG TAB PO SCH (06:00)
[2019-12-29 12:05] LABS: 7-Aminoclonaz, Confirm NEGATIVE ng/mL (<25); Hydro-Alp Ur, GC/MS 210 ng/mL (<25); Hydroxyethylflurazepam, Conf NEGATIVE ng/mL (<50); Hydroxytriazolam NEGATIVE ng/mL (<50); Lorazepam, Ur GC/MS NEGATIVE ng/mL (<50); Nordiazepam, Confirm NEGATIVE ng/mL (<50); Oxazepam Ur, GC/MS 210 ng/mL (<50); Temazepam, Confirm NEGATIVE ng/mL (<50)
[2019-12-30] MEDS ORDERED: GABAPENTIN 600 MG TAB PO SCH (18:00)
== END 2019-12-28 15:07 | disposition home or self-care (01) | DRG 897 ==
LOC: ED 22:49 → 2E 12-27 04:27 → INTOOBSV 12-27 04:27 → SUATTDRO 12-27 04:27 → 2E 12-27 05:02

== ENCOUNTER 2020-06-26 16:11 | Inpatient (IN) ==
[2020-06-26] MEDS ORDERED: LORazepam 1 MG/2 ML VIAL IV STA ×2 (16:38→17:42)
[2020-06-26] MEDS ORDERED: cloNIDine HCL 0.3 MG/24 HR TRANSDERM SYS TD STA (16:38)
[2020-06-26] MEDS ORDERED: MULTI-VITAMIN INFUSION 10 ML, THIAMINE HCL 100 MG, FOLIC ACID 1 MG in SODIUM CHLORIDE 0... IV ONE (16:39)
[2020-06-26 17:06] LABS: Basophils # (auto) 0.09 K/uL (0-0.2); Basophils % (auto) 1.4 %; Eosinophils # (auto) 0.12 K/uL (0-0.5); Eosinophils % (auto) 1.9 %; Hematocrit (blood only) 39.6 % (37-47); Hemoglobin 13.1 g/dL (12.0-16.0); Immature Granulocytes # (auto) 0.01 K/uL (0.00-0.02); Immature Granulocytes % (auto) 0.2 %; Lymphocytes # (auto) 2.24 K/uL (1.2-3.4); Lymphocytes % (auto) 35.4 %; Mean Corpuscular Hemoglobin 32.8 pg (25-34); Mean Corpuscular Hgb Conc 33.1 g/dL (32-36); Mean Corpuscular Volume 99.2 fL (80-100); Mean Platelet Volume 9.2 fL (7.4-10.4); Monocytes % (auto) 6.3 %; Neutrophils # (auto) 3.46 K/uL (1.4-6.5); Neutrophils % (auto) 54.8 %; Platelet Count 283 K/uL (130-400); RDW Coefficient of Variation 16.3 % (11.5-14.5); RDW Standard Deviation 59.5 fL (36.4-46.3); Red Blood Count 3.99 M/uL (4.2-5.4); White Blood Count 6.32 K/uL (4.8-10.8)
[2020-06-26 17:27] LABS: Alanine Aminotransferase 40 U/L (12-78); Albumin Level 3.2 gm/dl (3.4-5.0); Aspartate Aminotransferase 49 U/L (15-37); BUN Creatinine Ratio 9.5 (10-20); Blood Urea Nitrogen 9 mg/dl (7-18); Calcium 8.2 mg/dl (8.5-10.1); Carbon Dioxide 30 mmol/L (21-32); Chloride 109 mmol/L (98-107); Creatinine Clr Calc Pharmacy 75.7 ml/min; Est GFR (African American) 84.4; Est GFR (Non-African American) 72.8; Glucose 92 mg/dl (70-99); Potassium 4.1 mmol/L (3.5-5.1); Sodium 146 mmol/L (136-145)
[2020-06-26 17:31] LABS: Pregnancy Test, Serum Negative (Negative)
[2020-06-26 17:37] LABS: Albumin Globulin Ratio 0.8 (0.9-2); Alkaline Phosphatase 78 U/L (45-117); Bilirubin,Total 0.4 mg/dl (0.2-1); Creatine Kinase 220 U/L (26-192); Creatine Kinase MB 1.7 ng/ml (0.5-3.6); Globulin 3.9 gm/dl (2.5-4.0); Thyroid Stimulating Hormone 0.503 uIu/ml (0.300-4.500); Total Protein 7.1 gm/dl (6.4-8.2); Troponin I < 0.015 ng/ml (0-0.045)
[2020-06-26] MEDS ORDERED: SODIUM CHLORIDE 0.9% 1000ML 1,000 ML IV ONE (17:51)
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
[2020-06-26 17:56] LABS: Acetaminophen < 2 ug/ml (10-30)
[2020-06-26 17:57] LABS: Salicylate < 1.7 mg/dl (2.8-20)
[2020-06-26] MEDS ORDERED: ONDANSETRON INJ 2 MG/ML 2 ML VIAL ONE (18:39)
[2020-06-26] MEDS ORDERED: ONDANSETRON INJ 2 MG/ML 2 ML VIAL IV STA (18:41)
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
[2020-06-26] MEDS ORDERED: ONDANSETRON INJ 2 MG/ML 2 ML VIAL IV PRN (19:35)
[2020-06-26] MEDS ORDERED: POLYETHYLENE (MIRALAX) 17 GM PACK PO PRN (19:35)
[2020-06-26] MEDS ORDERED: LORazepam 1 MG TAB PO PRN (19:35)
[2020-06-26] MEDS ORDERED: LACTATED RINGER'S 1,000 ML IV SCH (19:35)
[2020-06-26] MEDS ORDERED: GABAPENTIN 1200MG ALCOHOL WITHDRAWAL LOAD PO STA (19:35)
[2020-06-26] MEDS ORDERED: FOLIC ACID 1 MG in SYRINGE 9.8 ML IV ONE (19:45)
[2020-06-26] MEDS ORDERED: GABAPENTIN 600 MG TAB PO ONE (20:30)
[2020-06-26 20:45] LABS: Partial Thromboplastin Ratio 0.9; Prothrombin Time 10.4 Seconds (9.0-12.0)
[2020-06-26] MEDS: THIAMINE HCL 200 MG in SODIUM CHLORIDE 0.9% 50 ML IV SCH (20:47)
[2020-06-26] MEDS: ENOXAPARIN INJ 40 MG/0.4 ML SYR SQ SCH (20:54)
[2020-06-26] MEDS: RALTEGRAVIR POTASSIUM 400 MG TAB PO SCH (20:54)
[2020-06-26] MEDS: EMTRICITABINE/TENOFOVIR TAB PO SCH (20:54)
[2020-06-26] MEDS: LORazepam 1 MG/2 ML VIAL IV PRN (21:11)
[2020-06-26 21:25] LABS: Folate (Folic Acid) > 24.00 ng/ml (>5.38); Vitamin B12 380 pg/ml (211-911)
[2020-06-26] MEDS: LEVALBUTEROL TARTRATE 15 GM HFA.AER.AD INH SCH (23:39)
[2020-06-27] MEDS ORDERED: CHECK CLONIDINE PATCH PLACEMENT SCH
[2020-06-27] MEDS: SODIUM CHLORIDE 0.45 % 1,000 ML IV SCH ×3 (00:38→22:48)
[2020-06-27] MEDS: guaiFENesin 600 MG TABCR PO SCH ×3 (00:40→22:02)
[2020-06-27] MEDS: GABAPENTIN 600 MG TAB PO SCH ×3 (03:10→17:00)
[2020-06-27 06:42] LABS: Appearance Urine Clear (Clear); Bilirubin Urine Negative (Negative); Blood Urine 1+ (Negative); Color Urine Yellow; Glucose Urine UA Negative (Negative); Ketones Urine Negative (Negative); Leukocyte Esterase Urine 1+ (Negative); Nitrite Urine Negative (Negative); Protein Urine Negative (Negative); Urobilinogen Urine Negative (Negative); pH Urine 6.5 (4.5-7.5)
[2020-06-27 06:50] LABS: Bacteria Urine 1+ (Negative); Epithelial Cell Urine 20-30 /lpf (0-5); RBC Urine 0-4 /hpf (0-4)
[2020-06-27] MEDS: LEVALBUTEROL TARTRATE 15 GM HFA.AER.AD INH SCH ×4 (06:57→19:59)
[2020-06-27 07:01] LABS: Amphetamines+Metham, Urine Neg (Neg); Barbiturates, Urine Neg (Neg); Benzodiazepine, Urine Pos (Neg); Cocaine, Urine Neg (Neg); MDMA (Ecstacy), Urine Neg (Neg); Methadone, Urine Neg (Neg); Opiate, Urine Neg (Neg); Phencyclidine, Urine Neg (Neg)
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
[2020-06-27] MEDS: FOLIC ACID 1 MG in SYRINGE 9.8 ML IV SCH (08:14)
[2020-06-27] MEDS: EMTRICITABINE/TENOFOVIR TAB PO SCH (08:15)
[2020-06-27] MEDS: CYANOCOBALAMIN 500 MCG TABLET (VITAMIN B-12) PO SCH (08:15)
[2020-06-27] MEDS: MULTIVITAMIN TAB PO SCH (08:15)
[2020-06-27] MEDS: VALACYCLOVIR HCL 500 MG TABLET PO SCH (08:15)
[2020-06-27] MEDS: RALTEGRAVIR POTASSIUM 400 MG TAB PO SCH ×2 (08:15→22:01)
[2020-06-27] MEDS: CEROVITE ADV FORMULA TAB PO SCH (08:16)
[2020-06-27] MEDS: THIAMINE HCL 200 MG in SODIUM CHLORIDE 0.9% 50 ML IV SCH (08:19)
--- NOTE | 2020-06-27 08:20 | XRay Report ---
XR chest 2V PA/lateral CLINICAL HISTORY: cough, b/l lower lobe congestion COMPARISON STUDY: No previous studies for comparison. FINDINGS: The cardiac and mediastinal contours are normal. There is no evidence of focal pulmonary co nsolidation. There is no evidence of failure. No pleural effusions are visualized.[ IMPRESSION: No active disease in the chest. ACT 112: Negative or not required by law. Electronically signed by: Evelio Sands M.D. 06/27/2020 8:18 AM
[2020-06-27] MEDS ORDERED: CEROVITE ADV FORMULA TAB PO SCH (09:00)
[2020-06-27 09:17] LABS: Basophils # (auto) 0.02 K/uL (0-0.2); Basophils % (auto) 0.2 %; Eosinophils # (auto) 0.43 K/uL (0-0.5); Eosinophils % (auto) 4.3 %; Hematocrit (blood only) 31.6 % (37-47); Hemoglobin 10.6 g/dL (12.0-16.0); Immature Granulocytes # (auto) 0.02 K/uL (0.00-0.02); Immature Granulocytes % (auto) 0.2 %; Mean Corpuscular Hemoglobin 33.4 pg (25-34); Mean Corpuscular Hgb Conc 33.5 g/dL (32-36); Mean Corpuscular Volume 99.7 fL (80-100); Mean Platelet Volume 9.7 fL (7.4-10.4); Monocytes # (auto) 0.69 K/uL (0.11-0.59); Monocytes % (auto) 6.9 %; Neutrophils # (auto) 7.06 K/uL (1.4-6.5); Neutrophils % (auto) 70.4 %; Platelet Count 192 K/uL (130-400); RDW Coefficient of Variation 16.2 % (11.5-14.5); RDW Standard Deviation 58.9 fL (36.4-46.3); Red Blood Count 3.17 M/uL (4.2-5.4); White Blood Count 10.02 K/uL (4.8-10.8)
[2020-06-27] MEDS: LORazepam 1 MG/2 ML VIAL IV PRN ×3 (10:41→22:19)
--- NOTE | 2020-06-27 12:32 | Billing Data ---
Date of Service June 26, 2020 Coding Level of Care Code 31595 Initial Inpt Care Lvl 3
[2020-06-27] MEDS: BuPROPion XL 150 MG TABCR PO SCH (17:58)
[2020-06-27] MEDS: ENOXAPARIN INJ 40 MG/0.4 ML SYR SQ SCH (22:01)
[2020-06-28] MEDS: GABAPENTIN 600 MG TAB PO SCH ×3 (01:09→21:11)
[2020-06-28] MEDS: LEVALBUTEROL TARTRATE 15 GM HFA.AER.AD INH SCH ×2 (07:10→11:21)
[2020-06-28] MEDS: guaiFENesin 600 MG TABCR PO SCH ×2 (07:42→21:11)
[2020-06-28] MEDS: SODIUM CHLORIDE 0.45 % 1,000 ML IV SCH ×2 (07:42→17:29)
[2020-06-28] MEDS: FOLIC ACID 1 MG in SYRINGE 9.8 ML IV SCH (07:42)
[2020-06-28] MEDS: DULOXETINE HCL 20 MG CAP PO SCH (07:43)
[2020-06-28] MEDS: CEROVITE ADV FORMULA TAB PO SCH (07:43)
[2020-06-28] MEDS: RALTEGRAVIR POTASSIUM 400 MG TAB PO SCH ×2 (07:43→21:11)
[2020-06-28] MEDS: EMTRICITABINE/TENOFOVIR TAB PO SCH (07:44)
[2020-06-28] MEDS: MULTIVITAMIN TAB PO SCH (07:44)
[2020-06-28] MEDS: BuPROPion XL 150 MG TABCR PO SCH (07:44)
[2020-06-28] MEDS: VALACYCLOVIR HCL 500 MG TABLET PO SCH (07:44)
[2020-06-28] MEDS: CYANOCOBALAMIN 500 MCG TABLET (VITAMIN B-12) PO SCH (07:44)
[2020-06-28] MEDS: THIAMINE HCL 200 MG in SODIUM CHLORIDE 0.9% 50 ML IV SCH (07:49)
[2020-06-28 07:56] LABS: Basophils # (auto) 0.04 K/uL (0-0.2); Basophils % (auto) 0.6 %; Eosinophils # (auto) 0.45 K/uL (0-0.5); Eosinophils % (auto) 6.6 %; Hematocrit (blood only) 33.2 % (37-47); Hemoglobin 11.1 g/dL (12.0-16.0); Immature Granulocytes # (auto) 0.01 K/uL (0.00-0.02); Immature Granulocytes % (auto) 0.1 %; Lymphocytes # (auto) 1.74 K/uL (1.2-3.4); Lymphocytes % (auto) 25.4 %; Mean Corpuscular Hemoglobin 33.5 pg (25-34); Mean Corpuscular Volume 100.3 fL (80-100); Mean Platelet Volume 9.8 fL (7.4-10.4); Monocytes # (auto) 0.63 K/uL (0.11-0.59); Monocytes % (auto) 9.2 %; Neutrophils # (auto) 3.97 K/uL (1.4-6.5); Neutrophils % (auto) 58.1 %; Platelet Count 178 K/uL (130-400); RDW Coefficient of Variation 15.9 % (11.5-14.5); RDW Standard Deviation 58.2 fL (36.4-46.3); Red Blood Count 3.31 M/uL (4.2-5.4); White Blood Count 6.84 K/uL (4.8-10.8)
[2020-06-28 07:59] LABS: Mean Corpuscular Hgb Conc 33.4 g/dL (32-36)
[2020-06-28 08:44] LABS: BUN Creatinine Ratio 11.4 (10-20); Calcium 7.4 mg/dl (8.5-10.1); Creatinine Clr Calc Pharmacy 115.2 ml/min; Est GFR (African American) 131.5; Est GFR (Non-African American) 113.4; Potassium 3.9 mmol/L (3.5-5.1)
[2020-06-28] MEDS ORDERED: BuPROPion XL 150 MG TABCR PO SCH (09:00)
[2020-06-28] MEDS ORDERED: DULOXETINE HCL 20 MG CAP PO SCH ×2 (09:00)
[2020-06-28] MEDS: LORazepam 1 MG/2 ML VIAL IV PRN (09:26)
[2020-06-28] MEDS ORDERED: LEVALBUTEROL TARTRATE 15 GM HFA.AER.AD INH PRN (11:20)
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
[2020-06-28 15:59] LABS: 7-Aminoclonaz, Confirm NEGATIVE ng/mL (<25); Hydro-Alp Ur, GC/MS NEGATIVE ng/mL (<25); Hydroxyethylflurazepam, Conf NEGATIVE ng/mL (<50); Hydroxymidazolam Ur, GC/MS NEGATIVE ng/mL (<50); Hydroxytriazolam NEGATIVE ng/mL (<50); Lorazepam, Ur GC/MS 1830 ng/mL (<50); Nordiazepam, Confirm NEGATIVE ng/mL (<50); Oxazepam Ur, GC/MS 779 ng/mL (<50); Temazepam, Confirm NEGATIVE ng/mL (<50)
--- NOTE | 2020-06-28 16:18 | Electrocardiogram Report ---
Test Reason : Blood Pressure : / mmHG Vent. Rate : 092 BPM Atrial Rate : 092 BPM P-R Int : 128 ms QRS Dur : 082 ms QT Int : 362 ms P-R-T Axes : 027 056 034 degrees QTc Int : 447 ms Normal sinus rhythm Normal ECG When compared with ECG of 26-DEC-2019 23:23, No significant change was found Confirmed by Fredo Gastelum ([id number]) on 06/28/2020 4:17:29 PM Referred By: REFERRED SELF Confirmed By:Fredo Gastelum
[2020-06-28] MEDS ORDERED: metroNIDAZOLE 500 MG TAB PO ONE (16:30)
[2020-06-28] MEDS ORDERED: MELATONIN 3 MG TAB PO PRN (20:40)
[2020-06-28] MEDS: ENOXAPARIN INJ 40 MG/0.4 ML SYR SQ SCH (21:11)
[2020-06-29] MEDS: SODIUM CHLORIDE 0.45 % 1,000 ML IV SCH (04:23)
[2020-06-29] MEDS: FOLIC ACID 1 MG in SYRINGE 9.8 ML IV SCH (08:17)
[2020-06-29] MEDS: THIAMINE HCL 200 MG in SODIUM CHLORIDE 0.9% 50 ML IV SCH (08:17)
[2020-06-29] MEDS: EMTRICITABINE/TENOFOVIR TAB PO SCH (08:20)
[2020-06-29] MEDS: DULOXETINE HCL 20 MG CAP PO SCH (08:20)
[2020-06-29] MEDS: guaiFENesin 600 MG TABCR PO SCH (08:20)
[2020-06-29] MEDS: GABAPENTIN 600 MG TAB PO SCH (08:20)
[2020-06-29] MEDS: RALTEGRAVIR POTASSIUM 400 MG TAB PO SCH (08:20)
[2020-06-29] MEDS: VALACYCLOVIR HCL 500 MG TABLET PO SCH (08:20)
[2020-06-29] MEDS: CEROVITE ADV FORMULA TAB PO SCH (08:20)
[2020-06-29] MEDS: CYANOCOBALAMIN 500 MCG TABLET (VITAMIN B-12) PO SCH (08:20)
[2020-06-29] MEDS: BuPROPion XL 150 MG TABCR PO SCH (08:21)
[2020-06-29] MEDS: MULTIVITAMIN TAB PO SCH (08:21)
[2020-06-29 08:31] VITALS: TEMP 98.2; O2SAT 99
[2020-06-29 08:43] LABS: Hematocrit (blood only) 35.5 % (37-47); Hemoglobin 11.8 g/dL (12.0-16.0); Mean Corpuscular Hemoglobin 33.4 pg (25-34); Mean Corpuscular Hgb Conc 33.2 g/dL (32-36); Mean Corpuscular Volume 100.6 fL (80-100); Mean Platelet Volume 10.1 fL (7.4-10.4); Platelet Count 188 K/uL (130-400); RDW Coefficient of Variation 15.8 % (11.5-14.5); RDW Standard Deviation 57.5 fL (36.4-46.3); Red Blood Count 3.53 M/uL (4.2-5.4); White Blood Count 8.04 K/uL (4.8-10.8)
[2020-06-29 09:24] LABS: Albumin Level 2.5 gm/dl (3.4-5.0); BUN Creatinine Ratio 12.7 (10-20); Bilirubin Direct 0.1 mg/dl (0-0.2); Calcium 8.1 mg/dl (8.5-10.1); Creatinine Clr Calc Pharmacy 101.2 ml/min; Est GFR (Non-African American) 103.5; Potassium 3.7 mmol/L (3.5-5.1)
[2020-06-29 09:28] LABS: Bilirubin,Total 0.4 mg/dl (0.2-1); Total Protein 5.8 gm/dl (6.4-8.2)
[2020-06-29 11:10] VITALS: BP 110/74; PULSE 69
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
--- NOTE | 2020-06-29 18:53 | Billing Data ---
Date of Service June 29, 2020 Coding Level of Care Code D/C Day Management <30 mins
[2020-06-30] MEDS ORDERED: GABAPENTIN 600 MG TAB PO SCH (08:30)
== END 2020-06-29 13:01 | disposition home or self-care (01) | DRG 897 ==
LOC: ED 16:11 → 2W 18:51 → SUATTDRO 18:51 → 2W 18:55

== ENCOUNTER 2020-09-04 17:14 | Inpatient (IN) ==
[2020-09-04] MEDS ORDERED: SODIUM CHLORIDE 0.9% 1000ML 1,000 ML IV SCH (18:30)
[2020-09-04] MEDS ORDERED: MULTI-VITAMIN INFUSION 10 ML, THIAMINE HCL 100 MG, FOLIC ACID 1 MG in SODIUM CHLORIDE 0... IV ONE (18:44)
[2020-09-04] MEDS ORDERED: LORazepam 2 MG/4 ML VIAL IV STA (18:44)
[2020-09-04 19:02] LABS: Basophils # (auto) 0.06 K/uL (0-0.2); Basophils % (auto) 1.2 %; Eosinophils # (auto) 0.05 K/uL (0-0.5); Hematocrit (blood only) 44.9 % (37-47); Hemoglobin 15.6 g/dL (12.0-16.0); Immature Granulocytes # (auto) 0.01 K/uL (0.00-0.02); Immature Granulocytes % (auto) 0.2 %; Lymphocytes # (auto) 1.95 K/uL (1.2-3.4); Lymphocytes % (auto) 37.4 %; Mean Corpuscular Hemoglobin 34.7 pg (25-34); Mean Corpuscular Hgb Conc 34.7 g/dL (32-36); Mean Corpuscular Volume 99.8 fL (80-100); Monocytes % (auto) 13.4 %; Neutrophils # (auto) 2.44 K/uL (1.4-6.5); Neutrophils % (auto) 46.8 %; Platelet Count 207 K/uL (130-400); RDW Coefficient of Variation 13.8 % (11.5-14.5); RDW Standard Deviation 50.6 fL (36.4-46.3); White Blood Count 5.21 K/uL (4.8-10.8)
[2020-09-04 19:26] LABS: Acetaminophen < 2 ug/ml (10-30); Albumin Level 3.6 gm/dl (3.4-5.0); BUN Creatinine Ratio 8.4 (10-20); Calcium 8.8 mg/dl (8.5-10.1); Creatinine Clr Calc Pharmacy 78.6 ml/min; Magnesium 1.8 mg/dl (1.8-2.4); Potassium 3.7 mmol/L (3.5-5.1); Salicylate < 1.7 mg/dl (2.8-20)
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
[2020-09-04 19:29] LABS: Albumin Globulin Ratio 0.9 (0.9-2); Bilirubin,Total 0.3 mg/dl (0.2-1); Total Protein 7.6 gm/dl (6.4-8.2)
[2020-09-04 19:32] LABS: Pregnancy Test, Serum Negative (Negative)
--- NOTE | 2020-09-04 19:53 | CT Scan Report ---
HEAD CT NONCONTRAST CT DOSE: 537.48 mGy.cm HISTORY: fall, etoh TECHNIQUE: Multiaxial CT images of the head were performed without the use of intravenous contrast. A utomated exposure control was utilized for this study. A dose lowering technique was utilized adheri ng to the principles of ALARA. Comparison: None. Findings: The paranasal sinuses and mastoid air cells are clear. The calvarium and skull base are int act. The ventricles and sulci are within normal limits. There is no mass, hematoma, midline shift, or acute infarct. Impression: No acute intracranial abnormality. ACT 112: Negative or not required by law. Electronically signed by: Kel English M.D. 09/04/2020 7:52 PM
[2020-09-04 20:02] LABS: Appearance Urine Clear (Clear); Bilirubin Urine Negative (Negative); Blood Urine Negative (Negative); Color Urine Yellow; Glucose Urine UA Negative (Negative); Ketones Urine Negative (Negative); Leukocyte Esterase Urine Negative (Negative); Nitrite Urine Negative (Negative); Protein Urine Negative (Negative); Specific Gravity Urine 1.009 (1.000-1.030); Urobilinogen Urine Negative (Negative); pH Urine 7.5 (4.5-7.5)
[2020-09-04] MEDS ORDERED: LORazepam 1 MG/2 ML VIAL IV STA (21:31)
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
[2020-09-04] MEDS ORDERED: ALUMINUM/MAGNESIUM SUSP 30 ML UDC PO PRN (22:20)
[2020-09-04] MEDS ORDERED: LORazepam 1 MG/2 ML VIAL IV PRN (22:20)
[2020-09-04] MEDS ORDERED: LORazepam 3 MG/6 ML VIAL IV PRN (22:20)
[2020-09-04] MEDS ORDERED: ACETAMINOPHEN 325 MG TAB PO PRN (22:20)
[2020-09-04] MEDS ORDERED: ATIVAN IV ALCOHOL WITHDRAWL IV PRN (22:20)
[2020-09-04] MEDS ORDERED: ONDANSETRON INJ 2 MG/ML 2 ML VIAL IV PRN (22:20)
[2020-09-04] MEDS ORDERED: GABAPENTIN 1200MG ALCOHOL WITHDRAWAL LOAD PO STA (22:20)
[2020-09-04] MEDS ORDERED: POLYETHYLENE (MIRALAX) 17 GM PACK PO PRN (22:20)
[2020-09-04] MEDS ORDERED: diazePAM 5 MG TABLET PO ONE (22:20)
[2020-09-04] MEDS: THIAMINE HCL 100 MG in SYRINGE 9 ML IV SCH (22:50)
[2020-09-04] MEDS: FOLIC ACID 1 MG in SYRINGE 9.8 ML IV SCH (22:50)
[2020-09-04] MEDS ORDERED: GABAPENTIN 600 MG TAB PO ONE (23:00)
[2020-09-04] MEDS: LORazepam 2 MG/4 ML VIAL IV PRN (23:43)
[2020-09-04 23:44] LABS: Prothrombin Time 10.1 Seconds (9.0-12.0)
[2020-09-05 00:12] LABS: Vitamin B12 680 pg/ml (211-911)
[2020-09-05 00:13] LABS: Folate (Folic Acid) > 24.00 ng/ml (>5.38)
[2020-09-05] MEDS: LORazepam 2 MG/4 ML VIAL IV PRN ×2 (01:14→15:52)
--- NOTE | 2020-09-05 01:40 | Billing Data ---
Date of Service September 04, 2020 Coding Level of Care Code 94322 Initial Inpt Care Lvl 3
[2020-09-05] MEDS: GABAPENTIN 600 MG TAB PO SCH ×3 (06:08→18:23)
[2020-09-05] MEDS: FOLIC ACID 1 MG in SYRINGE 9.8 ML IV SCH (08:10)
[2020-09-05] MEDS: THIAMINE HCL 100 MG in SYRINGE 9 ML IV SCH (08:10)
[2020-09-05] MEDS: valACYclovir HCL 500 MG TABLET PO SCH (08:11)
[2020-09-05] MEDS: MULTIVITAMIN TAB PO SCH (08:12)
[2020-09-05] MEDS: buPROPion XL 300 MG TABCR PO SCH (08:12)
[2020-09-05] MEDS: PROPRANOLOL HCL 20 MG TAB PO SCH (08:12)
[2020-09-05] MEDS: DULoxetine HCL 20 MG CAP PO SCH (08:12)
[2020-09-05] MEDS: CHOLECALCIFEROL 1,000 UNITS 25 MCG TAB PO SCH (08:12)
[2020-09-05] MEDS: CITALOPRAM 20 MG TAB PO SCH (08:12)
[2020-09-05 08:19] LABS: Basophils # (auto) 0.03 K/uL (0-0.2); Basophils % (auto) 0.6 %; Eosinophils # (auto) 0.13 K/uL (0-0.5); Eosinophils % (auto) 2.5 %; Hematocrit (blood only) 37.6 % (37-47); Hemoglobin 12.4 g/dL (12.0-16.0); Lymphocytes # (auto) 1.68 K/uL (1.2-3.4); Lymphocytes % (auto) 32.2 %; Mean Corpuscular Hemoglobin 33.2 pg (25-34); Mean Corpuscular Volume 100.5 fL (80-100); Mean Platelet Volume 9.6 fL (7.4-10.4); Monocytes # (auto) 0.52 K/uL (0.11-0.59); Neutrophils # (auto) 2.86 K/uL (1.4-6.5); Neutrophils % (auto) 54.7 %; Platelet Count 183 K/uL (130-400); RDW Coefficient of Variation 13.7 % (11.5-14.5); RDW Standard Deviation 51.3 fL (36.4-46.3); Red Blood Count 3.74 M/uL (4.2-5.4); White Blood Count 5.22 K/uL (4.8-10.8)
[2020-09-05 08:45] LABS: Albumin Level 2.7 gm/dl (3.4-5.0); BUN Creatinine Ratio 10.5 (10-20); Calcium 7.9 mg/dl (8.5-10.1); Creatinine Clr Calc Pharmacy 98.6 ml/min; Est GFR (African American) 111.8; Est GFR (Non-African American) 96.4; Potassium 3.4 mmol/L (3.5-5.1)
[2020-09-05 08:51] LABS: Albumin Globulin Ratio 0.8 (0.9-2); Bilirubin,Total 0.5 mg/dl (0.2-1); Globulin 3.2 gm/dl (2.5-4.0); Total Protein 5.9 gm/dl (6.4-8.2)
--- NOTE | 2020-09-05 13:25 | Ultrasound Report ---
US liver CLINICAL HISTORY: Alcoholic hepatitis. COMPARISON STUDY: CT of the abdomen and pelvis March 15, 2017. Right upper quadrant ultrasound May 20, 2014. FINDINGS: Hepatic echogenicity is increased. No hepatic lesions are identified. There is no biliary d uctal dilatation. The common bile duct measures 3 mm in caliber. No gallstones are identified. There is no gallbladder wall thickening. Pancreatic body is normal. Head and tail are obscured. There is no right hydronephrosis. There is a probable 3 mm right renal calculus. IMPRESSION: 1. Increased hepatic echogenicity which suggests fatty infiltration. 2. No gallstones or biliary ductal dilatation. 3. Partially obscured pancreas. 4. Probable 3 mm right renal calculus. ACT 112: Negative or not required by law. Electronically signed by: Warren Yoo M.D. 09/05/2020 1:24 PM
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
[2020-09-05] MEDS ORDERED: IBUPROFEN 600 MG TAB PO PRN (17:54)
[2020-09-05] MEDS ORDERED: MELATONIN 3 MG TAB PO PRN (21:28)
[2020-09-06] MEDS: GABAPENTIN 600 MG TAB PO SCH ×2 (03:21→12:04)
[2020-09-06 07:48] LABS: Basophils # (auto) 0.06 K/uL (0-0.2); Eosinophils # (auto) 0.14 K/uL (0-0.5); Eosinophils % (auto) 2.3 %; Hematocrit (blood only) 40.9 % (37-47); Hemoglobin 13.6 g/dL (12.0-16.0); Immature Granulocytes # (auto) 0.01 K/uL (0.00-0.02); Immature Granulocytes % (auto) 0.2 %; Lymphocytes # (auto) 1.84 K/uL (1.2-3.4); Lymphocytes % (auto) 29.7 %; Mean Corpuscular Hemoglobin 33.7 pg (25-34); Mean Corpuscular Hgb Conc 33.3 g/dL (32-36); Mean Corpuscular Volume 101.2 fL (80-100); Mean Platelet Volume 10.1 fL (7.4-10.4); Monocytes # (auto) 0.75 K/uL (0.11-0.59); Monocytes % (auto) 12.1 %; Neutrophils % (auto) 54.7 %; Platelet Count 164 K/uL (130-400); RDW Coefficient of Variation 13.4 % (11.5-14.5); RDW Standard Deviation 50.3 fL (36.4-46.3); Red Blood Count 4.04 M/uL (4.2-5.4)
[2020-09-06 08:21] LABS: Albumin Level 2.7 gm/dl (3.4-5.0); BUN Creatinine Ratio 13.8 (10-20); Calcium 8.7 mg/dl (8.5-10.1); Creatinine Clr Calc Pharmacy 101.2 ml/min; Est GFR (African American) 115.3; Est GFR (Non-African American) 99.5; Potassium 3.5 mmol/L (3.5-5.1)
[2020-09-06] MEDS: THIAMINE HCL 100 MG in SYRINGE 9 ML IV SCH (08:23)
[2020-09-06] MEDS: FOLIC ACID 1 MG in SYRINGE 9.8 ML IV SCH (08:23)
[2020-09-06 08:24] LABS: Albumin Globulin Ratio 0.8 (0.9-2); Bilirubin,Total 0.5 mg/dl (0.2-1); Globulin 3.6 gm/dl (2.5-4.0); Total Protein 6.3 gm/dl (6.4-8.2)
[2020-09-06] MEDS: DULoxetine HCL 20 MG CAP PO SCH (08:24)
[2020-09-06] MEDS: CHOLECALCIFEROL 1,000 UNITS 25 MCG TAB PO SCH (08:24)
[2020-09-06] MEDS: CITALOPRAM 20 MG TAB PO SCH (08:24)
[2020-09-06] MEDS: PROPRANOLOL HCL 20 MG TAB PO SCH (08:24)
[2020-09-06] MEDS: MULTIVITAMIN TAB PO SCH (08:24)
[2020-09-06] MEDS: buPROPion XL 300 MG TABCR PO SCH (08:24)
[2020-09-06] MEDS: valACYclovir HCL 500 MG TABLET PO SCH (08:25)
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
[2020-09-06] MEDS ORDERED: GABAPENTIN 600 MG TAB PO SCH (23:00)
[2020-09-08] MEDS ORDERED: GABAPENTIN 600 MG TAB PO SCH (11:00)
== END 2020-09-06 16:48 | disposition home or self-care (01) | DRG 897 ==
LOC: ED 17:14 → 2N 21:13 → SUATTDRO 21:13 → 2N 22:00

== ENCOUNTER 2025-03-28 07:11 | Inpatient (IN) ==
[2025-03-28] MEDS: LORazepam 2 MG/1 ML VIAL IV STA (07:35)
[2025-03-28] MEDS: SODIUM CHLORIDE 0.9% 1,000 ML IV ONE (07:35)
[2025-03-28 07:42] LABS: Basophils # (auto) 0.14 K/uL (0.00-0.20); Basophils % (auto) 1.1 %; Eosinophils # (auto) 0.07 K/uL (0.00-0.50); Eosinophils % (auto) 0.6 %; Hematocrit (blood only) 44.4 % (37.0-47.0); Hemoglobin 15.5 g/dl (12.0-16.0); Immature Granulocytes # (auto) 0.04 K/uL (0.01-0.20); Immature Granulocytes % (auto) 0.3 %; Lymphocytes # (auto) 1.94 K/uL (1.20-3.40); Lymphocytes % (auto) 15.8 %; Mean Corpuscular Hgb Conc 34.9 g/dL (32.0-36.0); Mean Corpuscular Volume 91.7 fL (80.0-100.0); Mean Platelet Volume 9.7 fL (9.4-12.4); Monocytes # (auto) 0.68 K/uL (0.11-0.59); Monocytes % (auto) 5.6 %; Neutrophils # (auto) 9.37 K/uL (1.40-6.50); Neutrophils % (auto) 76.6 %; Platelet Count 410 K/uL (130-400); RDW Coefficient of Variation 13.2 % (11.5-14.5); RDW Standard Deviation 44.7 fL (36.4-46.3); Red Blood Count 4.84 M/uL (4.20-5.40); White Blood Count 12.24 K/ul (4.8-10.8)
[2025-03-28 07:57] LABS: Anion Gap 13 (3-11); Bilirubin,Total 1.3 mg/dl (0.2-1.0); Calcium 10.3 mg/dl (8.6-10.3); Carbon Dioxide 26 mmol/L (21-32); Chloride 101 mmol/L (98-107); Magnesium 1.6 mg/dl (1.7-2.4); Sodium 140 mmol/L (136-145)
[2025-03-28 08:01] LABS: Pregnancy Test, Serum Negative (Negative)
[2025-03-28 08:03] LABS: Alanine Aminotransferase 14 U/L (7-52); Albumin Globulin Ratio 1.4 (0.9-2); Alkaline Phosphatase 71 U/L (34-104); Aspartate Aminotransferase 25 U/L (13-39); BUN Creatinine Ratio 18.2 (10-20); Blood Urea Nitrogen 14 mg/dl (6-23); Globulin 3.7 gm/dl (2.5-4.0); Glucose 102 mg/dl (70-99(Fasting)); Total Protein 8.7 gm/dl (6.0-8.3)
[2025-03-28 08:04] LABS: Acetaminophen < 3 ug/ml (10-30); Salicylate < 3.0 mg/dl (3.0-30)
[2025-03-28 08:15] LABS: Prothrombin Time 10.9 Seconds (9.0-12.0)
--- NOTE | 2025-03-28 08:25 | CT Scan Report ---
CT head/brain wo con CLINICAL HISTORY: 44 years-old Female with Alcohol overdose. Acutely altered mental status TECHNIQUE: Multiple axial CT images of the head were obtained without contrast. A dose lowering tech nique was utilized adhering to the principles of ALARA. CT DOSE: 625.8 mGy.cm COMPARISON: 02/19/2025 FINDINGS: No acute intracranial hemorrhage, midline shift, intracranial mass, hydrocephalus, territorial ischem ia or abnormal extra-axial collection. The calvarium is intact. The paranasal sinuses, mastoid air cells, and middle ear cavities are clear . IMPRESSION: No acute intracranial abnormality. ACT 112: Negative or not required by law. The above report was generated using voice recognition software. It may contain grammatical, syntax o r spelling errors. Electronically signed by: Xu Concepcion M.D. 03/28/2025 8:24 AM
[2025-03-28] MEDS ORDERED: chlordiazePOXIDE ALCOHOL WITHDRAWL 50MG PO STA (08:32)
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
[2025-03-28 08:57] LABS: C Reactive Protein < 0.50 mg/dl (0-0.5)
[2025-03-28] MEDS: chlordiazePOXIDE HCl 25 MG CAP PO SCH (08:58)
[2025-03-28 09:18] LABS: Thyroid Stimulating Hormone 0.982 uIu/ml (0.300-4.500)
[2025-03-28] MEDS: FOLIC ACID 1 MG in SYRINGE 9.8 ML IV STA (09:23)
[2025-03-28] MEDS: THIAMINE HCL 100 MG in SYRINGE 9 ML IV STA (09:23)
[2025-03-28] MEDS: MAGNESIUM SULFATE / D5W 1 GM/100 ML BAG IV STA (09:23)
--- NOTE | 2025-03-28 10:47 | Electrocardiogram Report ---
Test Reason : Blood Pressure : */* mmHG Vent. Rate : 86 BPM Atrial Rate : 86 BPM P-R Int : 114 ms QRS Dur : 76 ms QT Int : 384 ms P-R-T Axes : 22 66 34 degrees QTcB Int : 459 ms Normal sinus rhythm Normal ECG When compared with ECG of 19-Feb-2025 09:32, Vent. rate has increased by 32 bpm T wave amplitude has increased in Anterior leads Confirmed by Paramjit Andrew ([id number]) on 03/28/2025 10:47:06 AM Referred By: REFERRED SELF Confirmed By: Paramjit Andrew
[2025-03-28] MEDS: THIAMINE HCL 100 MG TAB PO SCH (10:52)
[2025-03-28] MEDS: FOLIC ACID 1 MG TAB PO SCH (10:52)
[2025-03-28] MEDS: GABAPENTIN 600 MG TAB PO SCH (11:51)
[2025-03-28] MEDS: CHOLECALCIFEROL 25 MCG (1000 UNITS) TAB PO SCH (11:51)
[2025-03-28] MEDS: ESCITALOPRAM OXALATE 20 MG TAB PO SCH (11:51)
[2025-03-28] MEDS: OMEGA-3 (PURIFIED FISH OIL) 1 GM CAP PO SCH (11:51)
[2025-03-28] MEDS: buPROPion XL 300 MG TABCR PO SCH (11:51)
[2025-03-28] MEDS: chlordiazePOXIDE HCl 25 MG CAP PO ONE (11:52)
[2025-03-28] MEDS: guanFACINE HCL 1 MG TAB PO SCH (11:58)
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
[2025-03-28] MEDS: LACTATED RINGER'S 1,000 ML IV SCH (18:31)
[2025-03-28 19:49] LABS: Appearance Urine Turbid (Clear); Bacteria Urine Automated 4+ (None Seen); Bilirubin Urine 1+ (Negative); Blood Urine 3+ (Negative); Cast Urine Automated 0-2 /lpf (0-2); Color Urine Orange; Glucose Urine UA Negative (Negative); Ketones Urine 2+ (Negative); Leukocyte Esterase Urine 2+ (Negative); Mucus Urine Present (None Prsent); Nitrite Urine Negative (Negative); Protein Urine 2+ (Negative); RBC Urine Automated >20 /hpf (0-2); Specific Gravity Urine 1.022 (1.000-1.030); Urobilinogen Urine Negative (Negative); WBC Urine Automated >50 /hpf (0-5); pH Urine 6.5 (4.5-7.5)
[2025-03-28 20:06] LABS: Amphetamines+Metham, Urine Neg (Neg); Barbiturates, Urine Neg (Neg); Benzodiazepine, Urine Pos (Neg); Cocaine, Urine Neg (Neg); Fentanyl, Urine Neg (Neg); MDMA (Ecstacy), Urine Neg (Neg); Marijuana, Urine Pos (Neg); Methadone, Urine Neg (Neg); Opiate, Urine Neg (Neg); Phencyclidine, Urine Neg (Neg)
[2025-03-29 06:39] LABS: BUN Creatinine Ratio 19.2 (10-20); Calcium 8.8 mg/dl (8.6-10.3); Creatinine Clr Calc Pharmacy 101.3 ml/min; Potassium 3.7 mmol/L (3.5-5.1)
[2025-03-29 06:45] LABS: Hematocrit (blood only) 35.1 % (37.0-47.0); Mean Corpuscular Hgb Conc 34.2 g/dL (32.0-36.0); Mean Corpuscular Volume 93.6 fL (80.0-100.0); Mean Platelet Volume 9.7 fL (9.4-12.4); Platelet Count 285 K/uL (130-400); RDW Coefficient of Variation 13.4 % (11.5-14.5); RDW Standard Deviation 45.9 fL (36.4-46.3); Red Blood Count 3.75 M/uL (4.20-5.40); White Blood Count 7.64 K/ul (4.8-10.8)
[2025-03-29] MEDS ORDERED: chlordiazePOXIDE ALCOHOL WITHDRAWL 50MG PO STA (08:20)
[2025-03-29] MEDS: chlordiazePOXIDE HCl 25 MG CAP PO SCH (08:34)
[2025-03-29] MEDS: ACETAMINOPHEN 325 MG TAB PO PRN (08:35)
[2025-03-29] MEDS ORDERED: chlordiazePOXIDE HCl 25 MG CAP PO SCH (10:45)
[2025-03-29] MEDS: SUMAtriptan succinate 100 MG TAB PO ONE (21:05)
[2025-03-29] MEDS: LORazepam 2 MG/1 ML VIAL IV STA (21:06)
--- NOTE | 2025-03-29 23:53 | Hospitalist Progress Note ---
Date of Service March 29, 2025 Assessment & Plan (1) Alcohol withdrawal: Plan: Patient admitted for above diagnosis. Vitals stable. Will restart the librium taper at Q6h as patient is still scoring high on AWSS will continue supportive care continue thiamine and folic acid. can remain in PCU (2) Hypomagnesemia: Plan: replaced magnesium (3) ADHD: Plan: will hold home meds Admission and Anticipated Discharge Date Admission Date: March 28, 2025 Subjective Patient reports feeling anxious today. She is tearful. Physical Exam Constitutional: WD/WN, vitals as above Eyes: PERRL, conjunctivae normal, anicteric sclerae ENMT: external ear and nose normal, oropharynx normal Neck: trachea midline, no thyromegaly Respiratory: normal respiratory effort, lungs clear to auscultation Cardiovascular: RRR, no murmur, no edema Gastrointestinal (Abdomen): normal bowel sounds, soft, nontender, no hepatosplenomegaly Musculoskeletal: no cyanosis or clubbing, extremities motor strength 5/5 Skin: no rashes, warm and dry Neurologic: PERRL, EOMI, accommodation nl, no face palsy, no dysarthria (hand tremors noted) Psychiatric: A+Ox3, euthymic affect Lymphatic: no cervical or axillary lymphadenopathy Results & Data Results & Data Vital Signs (Past 12 Hours) Vital Signs Temp Pulse Pulse Resp BP Pulse Ox O2 Del Method 03/29/25 23:24 36.4 C L 71 16 102/67 99 Room Air 03/29/25 22:00 68 03/29/25 19:07 37.0 C 80 18 95/58 L 98 Room Air 03/29/25 18:30 36.3 C L 77 20 94/60 L 99 Room Air 03/29/25 16:31 36.7 C 82 17 102/67 99 Room Air 03/29/25 14:14 82 03/29/25 13:50 36.7 C 79 18 109/65 97 Room Air PG Care Time/CCT Total # of Minutes Spent Total Time Spent with Patient: Total time spent is greater than 50% in coordination of care (as documented) at patient's floor/unit and/or counseling patient: Coding Level of Care Code 74394 SUB INP/OBS CARE 3/50MIN Diagnoses Alcohol withdrawal F10.930 Complication of substance-induced condition: uncomplicated Hypomagnesemia E83.42 ADHD F90.9 (1) Alcohol withdrawal Complication of substance-induced condition: uncomplicated Qualified Code(s): F10.930 - Alcohol use, unspecified with withdrawal, uncomplicated
[2025-03-30 06:12] LABS: Hematocrit (blood only) 35.3 % (37.0-47.0); Hemoglobin 11.9 g/dl (12.0-16.0); Mean Corpuscular Hemoglobin 31.6 pg (25.0-34.0); Mean Corpuscular Hgb Conc 33.7 g/dL (32.0-36.0); Mean Corpuscular Volume 93.9 fL (80.0-100.0); Mean Platelet Volume 9.8 fL (9.4-12.4); Platelet Count 247 K/uL (130-400); RDW Coefficient of Variation 13.2 % (11.5-14.5); RDW Standard Deviation 45.8 fL (36.4-46.3); Red Blood Count 3.76 M/uL (4.20-5.40); White Blood Count 6.42 K/ul (4.8-10.8)
[2025-03-30] MEDS: LORazepam 2 MG/1 ML VIAL IV STA (06:50)
[2025-03-30 08:22] LABS: BUN Creatinine Ratio 12.2 (10-20); Calcium 8.6 mg/dl (8.6-10.3); Creatinine Clr Calc Pharmacy 99.9 ml/min; Magnesium 1.5 mg/dl (1.7-2.4); Phosphorus 3.5 mg/dl (2.5-4.9); Potassium 3.7 mmol/L (3.5-5.1)
[2025-03-30] MEDS: chlordiazePOXIDE HCl 25 MG CAP PO SCH (09:47)
[2025-03-30] MEDS ORDERED: chlordiazePOXIDE HCl 25 MG CAP PO SCH (10:45)
[2025-03-30] MEDS: diphenhydrAMINE 50 MG/ML VIAL IV STA (11:14)
[2025-03-30] MEDS: PROCHLORPERAZINE 10 MG in SYRINGE 8 ML IV ONE (11:14)
--- NOTE | 2025-03-30 22:52 | Hospitalist Progress Note ---
Date of Service March 30, 2025 Assessment & Plan (1) Alcohol withdrawal: Plan: Patient admitted for above diagnosis. Vitals stable. tolerating librium taper will continue supportive care continue thiamine and folic acid. can remain in PCU (2) Hypomagnesemia: Plan: replaced magnesium (3) ADHD: Plan: will hold home meds Migraine Ordered compazine and benadryl Admission and Anticipated Discharge Date Admission Date: March 28, 2025 Subjective Patient reports feeling better. Patient with headache Physical Exam Constitutional: WD/WN, vitals as above Eyes: PERRL, conjunctivae normal, anicteric sclerae ENMT: external ear and nose normal, oropharynx normal Neck: trachea midline, no thyromegaly Respiratory: normal respiratory effort, lungs clear to auscultation Cardiovascular: RRR, no murmur, no edema Gastrointestinal (Abdomen): normal bowel sounds, soft, nontender, no hepatosplenomegaly Musculoskeletal: no cyanosis or clubbing, extremities motor strength 5/5 Skin: no rashes, warm and dry Neurologic: PERRL, EOMI, accommodation nl, no face palsy, no dysarthria (hand tremors noted) Psychiatric: A+Ox3, euthymic affect Lymphatic: no cervical or axillary lymphadenopathy Results & Data Results & Data Vital Signs (Past 12 Hours) Vital Signs Temp Pulse Resp BP Pulse Ox O2 Del Method 03/30/25 19:30 36.6 C 76 16 99/64 L 98 Room Air 03/30/25 15:18 36.6 C 69 17 100/62 98 Room Air PG Care Time/CCT Total # of Minutes Spent Total Time Spent with Patient: Total time spent is greater than 50% in coordination of care (as documented) at patient's floor/unit and/or counseling patient: Coding Level of Care Code 33542 SUB INP/OBS CARE 3/50MIN Diagnoses Alcohol withdrawal F10.930 Complication of substance-induced condition: uncomplicated Hypomagnesemia E83.42 ADHD F90.9 (1) Alcohol withdrawal Complication of substance-induced condition: uncomplicated Qualified Code(s): F10.930 - Alcohol use, unspecified with withdrawal, uncomplicated
[2025-03-31] MEDS: hydrOXYzine HCl 25 MG TAB PO STA (05:30)
[2025-03-31] MEDS: chlordiazePOXIDE HCl 25 MG CAP PO SCH (12:34)
--- NOTE | 2025-03-31 18:37 | Hospitalist Progress Note ---
Date of Service March 31, 2025 Assessment & Plan (1) Alcohol withdrawal: Plan: Patient admitted for above diagnosis. Vitals stable. tolerating librium taper: will switch to librium 10 mg and forego the 25 mg dose. will continue supportive care continue thiamine and folic acid. can remain in PCU anticipate discharge tomorrow. vital signs are stable. (2) Hypomagnesemia: Plan: replaced magnesium (3) ADHD: Plan: will hold home meds Migraine Ordered compazine and benadryl. migraine resolved. Admission and Anticipated Discharge Date Admission Date: March 28, 2025 Subjective Patient reports no new symptoms. Patient feeling better and would like tapered quicker Physical Exam Constitutional: WD/WN, vitals as above Eyes: PERRL, conjunctivae normal, anicteric sclerae ENMT: external ear and nose normal, oropharynx normal Neck: trachea midline, no thyromegaly Respiratory: normal respiratory effort, lungs clear to auscultation Cardiovascular: RRR, no murmur, no edema Gastrointestinal (Abdomen): normal bowel sounds, soft, nontender, no hepatosplenomegaly Musculoskeletal: no cyanosis or clubbing, extremities motor strength 5/5 Skin: no rashes, warm and dry Neurologic: PERRL, EOMI, accommodation nl, no face palsy, no dysarthria (hand tremors noted) Psychiatric: A+Ox3, euthymic affect Lymphatic: no cervical or axillary lymphadenopathy Results & Data Results & Data Vital Signs (Past 12 Hours) Vital Signs Temp Pulse Resp BP Pulse Ox O2 Del Method 03/31/25 15:12 36.8 C 72 17 106/67 100 Room Air 03/31/25 11:04 36.8 C 76 18 95/56 L 98 Room Air 03/31/25 07:57 36.6 C 68 18 92/56 L 99 Room Air PG Care Time/CCT Total # of Minutes Spent Total Time Spent with Patient: Total time spent is greater than 50% in coordination of care (as documented) at patient's floor/unit and/or counseling patient: Coding Level of Care Code 87061 SUB INP/OBS CARE 3/50MIN Diagnoses Alcohol withdrawal F10.930 Complication of substance-induced condition: uncomplicated Hypomagnesemia E83.42 ADHD F90.9 (1) Alcohol withdrawal Complication of substance-induced condition: uncomplicated Qualified Code(s): F10.930 - Alcohol use, unspecified with withdrawal, uncomplicated
[2025-04-01 07:35] VITALS: RESP 20; TEMP 97.5; O2SAT 98
--- NOTE | 2025-04-01 08:10 | Discharge Summary ---
Discharge Summary Date of Service April 01, 2025 Principal Dx & Hospital Course #1 = Principal Diagnosis (1) Alcohol withdrawal: Patient admitted for above diagnosis. Vitals stable. tolerating librium taper: will switch to librium 10 mg and forego the 25 mg d ose. will continue supportive care continue thiamine and folic acid. can remain in PCU anticipate discharge tomorrow. vital signs are stable. (2) Hypomagnesemia: replaced magnesium (3) ADHD: will hold home meds Migraine Ordered compazine and benadryl. migraine resolved. Admission HPI Per Admitting Provider 44 yo female reports having symptoms of alcohol withdrawal. Patient states that she had been abstinent from alcohol but for the past week she "fell off the wagon" and began drinking again. She reports she was binge drinking and her last alcoholic beverage was yesterday. She complaining of shakes, and chills. Denies any fever, hallucinations. Discharge Plan Discharge Items Patient Disposition: Home - Self-Care Reason For Visit: ALCOHOL WITHDRAWAL Discharge Diagnosis: Alcohol withdrawal. Condition on Discharge: Fair Activity: Resume your previous activity Non-emergency contact: Primary Care Provider Call non-emergency contact if: you have any medication questions Follow-up/Referrals: Reyna Casillas PA-C [Primary Care Provider] - Diet: Regular Addtl Attending Provider Instructions: Recommend followup with PCP in 1-2 weeks Recommend setting up alcohol rehab. Pending Studies at Discharge: No Stand-Alone Forms: My [facility] pic5, Smoking Cessation Medications and DC Order Prescriptions: New thiamine HCl (vitamin B1) 100 mg Tablet 100 mg PO QAM Qty: 30 0RF magnesium oxide 400 mg (241.3 mg magnesium) Tablet 400 mg PO QAM Qty: 30 0RF folic acid 1 mg Tablet 1 mg PO QAM Qty: 30 0RF Continued bupropion HCl 300 mg tablet extended release 24 hr 300 mg PO QAM valacyclovir 1 gram tablet 1,000 mg PO QAM guanfacine 2 mg tablet 2 mg PO QAM methylphenidate HCl 54 mg tablet extended release 24hr 54 mg PO QAM gabapentin 600 mg tablet 600 mg PO QAM garlic 1,000 mg Capsule 1,000 mg PO QAM Rx Instructions: Unable to verify OTC med at this date/time. cholecalciferol (vitamin D3) [Vitamin D3] 25 mcg (1,000 unit) Capsule 25 mcg PO QAM Rx Instructions: Unable to verify OTC med at this date/time. escitalopram oxalate 20 mg tablet 20 mg PO QAM Women's One Daily 18 mg iron-400 mcg-500 mg Tablet 1 tab PO QAM Rx Instructions: Unable to verify OTC med at this date/time. Nurtec ODT 75 mg Tablet,Disintegrating 75 mg PO DAILY PRN (Reason: Headache) acetaminophen 500 mg Tablet 1,000 mg PO Q6H PRN (Reason: Cramps) Rx Instructions: Unable to verify OTC med at this date/time. ibuprofen 200 mg Tablet 400 mg PO Q6H PRN (Reason: Cramps) Rx Instructions: Unable to verify OTC med at this date/time. sumatriptan succinate 50 mg tablet See Rx Instructions .ROUTE .COMPLEX Qty: 20 0RF Rx Instructions: take 1 tab at onset of headache; if no relief may repeat 1 tab after at least 2 hrs; max = 4 tabs/24 hr ondansetron 4 mg tablet,disintegrating 4 mg PO Q6H PRN (Reason: nausea and vomiting) Qty: 20 0RF omega-3 fatty acids 1,000 mg Capsule 2,000 mg PO DAILY Rx Instructions: Unable to verify OTC med at this date/time. propranolol 20 mg tablet 20 mg PO DAILY PRN (Reason: Migraine Headache) Rx Instructions: Unable to verify at this date/time. Discharge Orders: Discharge Order (Routine); Ordered 04/01/25 Ordered By: Adam Chew Admission Data Admit Date/Time: 03/28/25 08:36 Attending Provider: Adam Chew Admit Provider: Adam Chew Primary Care Provider: Reyna Casillas Other Providers: Adam Chew Hospital Stay Data Consultations 03/28/25 08:43 ED Decision to Admit Stat Diagnostic Imagining Performed 03/28/25 07:25 CT head/brain wo con Stat Pending Results Patient Have Any Pending Studies at Discharge: No Discharge Instructions Given to Patient (Per Discharging Provider) Recommend followup with PCP in 1-2 weeks Recommend setting up alcohol rehab. Coding Diagnoses Alcohol withdrawal F10.930 Complication of substance-induced condition: uncomplicated Hypomagnesemia E83.42 ADHD F90.9
[2025-04-01] MEDS: PROPRANOLOL HCL 20 MG TAB PO PRN (08:14)
[2025-04-01 08:22] VITALS: BP 120/70; PULSE 65
[2025-04-01] MEDS ORDERED: MAGNESIUM OXIDE 400 MG TAB PO SCH (09:00)
[2025-04-01 13:08] LABS: 7-Aminoclonaz, Confirm NEGATIVE ng/mL (<25); Hydro-Alp Ur, GC/MS NEGATIVE ng/mL (<25); Hydroxyethylflurazepam, Conf NEGATIVE ng/mL (<50); Hydroxymidazolam Ur, GC/MS NEGATIVE ng/mL (<50); Hydroxytriazolam NEGATIVE ng/mL (<50); Lorazepam, Ur GC/MS 1060 ng/mL (<50); Marijuana Quant, GCMS Urine 866 ng/mL (<5); Nordiazepam, Confirm NEGATIVE ng/mL (<50); Oxazepam Ur, GC/MS NEGATIVE ng/mL (<50); Temazepam, Confirm NEGATIVE ng/mL (<50)
[2025-04-02 12:07] LABS: Candida glabrata RNA Negative (Negative); Candida species group RNA Negative (Negative); Trichomonas vaginalis RNA Negative (Negative)
[2025-04-02 12:34] LABS: GC(Neis gon)RNA(Genit,Ureth,Ur Not Detected (NotDetected)
== END 2025-04-01 08:54 | disposition home or self-care (01) | DRG 897 ==
LOC: ED 07:11 → INTOOBSV 08:36 → 2S 08:36